=== PATIENT | female | born 1935 | race Hispanic/Latino ===

== ENCOUNTER 2018-11-05 22:57 | Emergency (ER) | payer SELFPAY ==
[2018-11-06 00:19] LABS: #Basophils 0.1 thou/uL (0.0-0.2); #Eosinphils 0.2 thou/uL (0.0-0.7); #Lymphocytes 1.4 thou/uL (1.20-3.40); #Monocytes 0.5 thou/uL (0.11-0.59); #Neutrophils 7.3 thou/uL (1.40-6.50); %Basophils 1.3 % (0.0-1.0); %Eosinophils 1.9 % (0.0-10.0); %Lymphocytes 15.2 % (21.0-51.0); %Monocytes 4.9 % (0.0-10.0); %Neutrophils 76.8 % (42.0-75.0); Hemoglobin 12.6 g/dL (12.0-16.0); Mean Corpuscular HGB CONC 34.4 g/dL (32.0-36.0); Mean Corpuscular Hemoglobin 29.8 pg (27.0-31.0); Mean Corpuscular Volume 86.9 fL (78.0-98.0); Mean Platelet Volume 9.2 fL (7.4-10.4); Platelet Count 209 thou/uL (130-400); RBC Distribution Width 12.1 % (11.5-14.5); Red Blood Cell (RBC) Count 4.22 mill/uL (4.20-5.40); White Blood Cell (WBC) Count 9.5 thou/uL (4.8-10.8)
[2018-11-06 00:32] LABS: ALT (SGPT) 12 U/L (8-55); AST (SGOT) 13 U/L (5-34); Albumin 4.4 g/dL (3.4-4.8); Alkaline Phosphatase 69 U/L (40-150); Anion Gap 21 mmol/L (10-20); BUN (Urea Nitrogen) 28 mg/dL (9.8-20.1); Bilirubin, Total 0.3 mg/dL (0.2-1.2); Calc. Creatinine Clearance 0 mL/min (70-130); Calcium 9.8 mg/dL (7.8-10.44); Carbon Dioxide 22 mmol/L (23-31); Chloride 97 mmol/L (98-107); Estimated GFR-MDRD 50; Globulin 3.4 g/dL (2.4-3.5); Glucose 116 mg/dL (83-110); Potassium 4.7 mmol/L (3.5-5.1); Protein, Total 7.8 g/dL (6.0-8.3); Sodium 135 mmol/L (136-145)
== END 2018-11-06 01:14 | disposition home or self-care (01) ==
LOC: SCSER 22:57
DX: I10 Essential (primary) hypertension (principal); E11.9 Type 2 diabetes mellitus without complications; E78.5 Hyperlipidemia, unspecified; E78.00 Pure hypercholesterolemia, unspecified; Z79.84 Long term (current) use of oral hypoglycemic drugs; Z79.899 Other long term (current) drug therapy
CPT/HCPCS: 80053; 84484; 85025; 93005; 96360; 96361

== ENCOUNTER 2018-11-13 13:12 | Inpatient (IN) | payer SELFPAY ==
[2018-11-13 13:36] LABS: #Eosinphils 0.1 thou/uL (0.0-0.7); #Lymphocytes 1.6 thou/uL (1.20-3.40); #Monocytes 0.5 thou/uL (0.11-0.59); #Neutrophils 4.9 thou/uL (1.40-6.50); %Basophils 0.4 % (0.0-1.0); %Eosinophils 0.8 % (0.0-10.0); %Lymphocytes 22.5 % (21.0-51.0); %Monocytes 7.2 % (0.0-10.0); Hemoglobin 12.8 g/dL (12.0-16.0); Mean Corpuscular Hemoglobin 29.7 pg (27.0-31.0); Mean Corpuscular Volume 84.9 fL (78.0-98.0); Mean Platelet Volume 7.7 fL (7.4-10.4); Platelet Count 239 thou/uL (130-400); RBC Distribution Width 11.6 % (11.5-14.5); Red Blood Cell (RBC) Count 4.32 mill/uL (4.20-5.40); White Blood Cell (WBC) Count 7.1 thou/uL (4.8-10.8)
[2018-11-13 13:57] LABS: ALT (SGPT) 12 U/L (8-55); AST (SGOT) 13 U/L (5-34); Albumin 4.4 g/dL (3.4-4.8); Alkaline Phosphatase 71 U/L (40-150); Anion Gap 16 mmol/L (10-20); BUN (Urea Nitrogen) 17 mg/dL (9.8-20.1); Bilirubin, Total 0.4 mg/dL (0.2-1.2); Calc. Creatinine Clearance 0 mL/min (70-130); Calcium 9.6 mg/dL (7.8-10.44); Carbon Dioxide 22 mmol/L (23-31); Chloride 87 mmol/L (98-107); Estimated GFR-MDRD 63; Glucose 107 mg/dL (83-110); Potassium 4.6 mmol/L (3.5-5.1); Protein, Total 7.4 g/dL (6.0-8.3); Sodium 120 mmol/L (136-145)
[2018-11-13 15:25] LABS: Anion Gap 15 mmol/L (10-20); BUN (Urea Nitrogen) 18 mg/dL (9.8-20.1); Calc. Creatinine Clearance 0 mL/min (70-130); Calcium 9.5 mg/dL (7.8-10.44); Carbon Dioxide 22 mmol/L (23-31); Chloride 89 mmol/L (98-107); Estimated GFR-MDRD 67; Glucose 97 mg/dL (83-110); Potassium 4.6 mmol/L (3.5-5.1); Sodium 121 mmol/L (136-145)
[2018-11-13 15:41] LABS: Bacteria/HPF 3+ HPF (None Seen); Bilirubin Negative (Negative); Blood, Urine Negative (Negative); Clarity Clear (Clear); Glucose, Urine (Dipstick) Normal (Negative); Leukocyte 250 Leu/uL (Negative); Nitrite Negative (Negative); Protein, Urine (Dipstick) Negative (Neg-Trace); RBC/HPF 0-3 HPF (0-3); Squamous Epithelial 0-3 HPF (0-3); Urobilinogen Normal mg/dL (Less than 2)
[2018-11-13] MEDS ORDERED: cefTRIAXone\\ROCEPHIN 2 GM VIAL ONE (17:30)
[2018-11-13 19:25] LABS: Magnesium 1.6 mg/dL (1.6-2.6); Phosphorus 3.3 mg/dL (2.3-4.7); Uric Acid 5.3 mg/dL (2.6-6.0)
[2018-11-13] MEDS ORDERED: Meclizine HCl 25 MG TAB PO PRN (19:30)
[2018-11-13] MEDS ORDERED: Ondansetron PF 4 MG/2 ML Vial IVP PRN (19:33)
[2018-11-13] MEDS ORDERED: Senokot S 8.6-50 MG TAB PO PRN (19:33)
[2018-11-13] MEDS ORDERED: Acetaminophen 325 MG TAB PO PRN (19:33)
[2018-11-13] MEDS ORDERED: Ondansetron ODT 4 MG TAB PO PRN (19:33)
[2018-11-13] MEDS ORDERED: Calcium Carbonate 500 MG ChewTAB PO PRN (19:33)
[2018-11-13] MEDS ORDERED: hydrALAZINE 20 MG/ML VIAL SLOW IVP PRN (19:36)
[2018-11-13] MEDS ORDERED: Sodium Chloride 0.9% 1,000 ML IV SCH (19:45)
--- NOTE | 2018-11-13 20:15 | HP ---
PRIMARY CARE PHYSICIAN: Gardenia Flores MD. CHIEF COMPLAINT: Generalized weakness with dizziness and increased urinary frequency of 1-week duration. HISTORY OF PRESENT ILLNESS: The patient is an 83-year-old female with hypertension, presented to the emergency room with above complaints. Over the last 1 week or so, the patient has generalized weakness along with lightheadedness, dizziness, and vertigo. She also has bilateral tinnitus. She also felt nauseous without any vomiting. She denies any headache, double vision, blurring of vision, facial asymmetry, weakness or numbness in any of her extremities. No history of falls or head injury reported. The patient was evaluated at [place] [facility] last week and was found to have mild dehydration. She was discharged to home. Her sodium at that time was 135 with BUN of 28, creatinine 1.06. In the emergency room today, her initial vital signs showed temperature 98.4, respirations of 18, pulse rate of 92 with a blood pressure of 205/83 with O2 saturation 97% on room air. Sodium today was 120. Urinalysis showed 11 to 20 wbc's with 3+ bacteria. PAST MEDICAL HISTORY: 1. Hypertension. 2. History of recurrent falls. 3. Diabetes mellitus type 2. 4. Hyperlipidemia. PAST SURGICAL HISTORY: Cholecystectomy. ALLERGIES: NO KNOWN DRUG ALLERGIES. CURRENT HOME MEDICATIONS: 1. Metformin 500 mg b.i.d. 2. Pravastatin 10 mg q.p.m. 3. Telmisartan 40 mg in the morning and 20 in the afternoon. 4. Aspirin 81 mg daily. SOCIAL HISTORY: The patient currently lives at home with her family. She denies current use of tobacco, alcohol, or drug use. She is full code and makes her own decision with the help of her family. FAMILY HISTORY: Positive for hypertension, hyperlipidemia, and diabetes. REVIEW OF SYSTEMS: All other review of systems was reviewed and was found negative. PHYSICAL EXAMINATION: VITAL SIGNS: As discussed above. GENERAL: An 83-year-old female, in no apparent distress. HEENT: Head, atraumatic and normocephalic. Sclerae are anicteric. Moist mucous membrane. No oral lesion. Pupils were equally reacting to light. NECK: Supple. No JVD. No carotid bruit. LUNGS: Clear to auscultation bilaterally. No wheezing, rales, or rhonchi. HEART: S1 and S2 present. Regular rate and rhythm. No rubs or gallops appreciated. ABDOMEN: Soft, nontender. Bowel sounds are present. EXTREMITIES: No edema or calf tenderness. NEUROLOGIC: Cranial nerves 2 through 12 are normal on examination. Power was 5/5 in all extremities. Sensation to touch was normal bilaterally. Ubbtqp-rq-[id number] was normal bilaterally. PSYCHIATRY: Alert, awake, and oriented x3. Normal affect. LYMPH NODES: No palpable lymph nodes in the neck. PERIPHERAL VASCULAR: Radial pulses palpable bilaterally. MUSCULOSKELETAL: No joint swelling or tenderness. LABORATORY FINDINGS: Sodium 120 with potassium 4.6, chloride 87, bicarbonate 22, BUN 17, creatinine 0.86. Serum osmolality 266. Urinalysis showed 11 to 20 wbc's with 3+ bacteria. Urine sodium 38, urine osmolality 257. WBC 7.1 with hemoglobin 12.8. IMAGING STUDIES: EKG by my review showed sinus rhythm without significant ST-T wave changes. IMPRESSION: 1. Generalized weakness, multifactorial. 2. Hypotonic hyponatremia. 3. Urinary tract infection. 4. Dehydration. 5. Chronic kidney disease, stage 2. 6. Hypertension. 7. Hyperlipidemia. 8. Diabetes mellitus type 2. PLAN: The patient will be monitored on the medical floor. We will start her on ceftriaxone for UTI. We will check postvoid residual. Start meclizine. Consult Physical Therapy. IV hydration. Recheck labs in a.m. Resume telmisartan as well as aspirin, metformin and pravastatin. Check orthostatic vitals in a.m. Add meclizine as needed. Recheck labs in a.m. Check TSH and cortisol as well. Please note, the patient is Hungarian-speaking only. History obtained with the help of the enrobing machine corder. Job ID: [id number]
[2018-11-13] MEDS: Pravastatin Sodium 20 MG TAB PO SCH (20:48)
[2018-11-13] MEDS ORDERED: Famotidine 20 MG TAB PO SCH (21:00)
[2018-11-14 06:26] LABS: Anion Gap 12 mmol/L (10-20); BUN (Urea Nitrogen) 17 mg/dL (9.8-20.1); Calc. Creatinine Clearance 38 mL/min (70-130); Calcium 9.2 mg/dL (7.8-10.44); Carbon Dioxide 23 mmol/L (23-31); Chloride 98 mmol/L (98-107); Estimated GFR-MDRD 66; Glucose 92 mg/dL (83-110); Magnesium 1.5 mg/dL (1.6-2.6); Phosphorus 3.5 mg/dL (2.3-4.7); Potassium 4.1 mmol/L (3.5-5.1); Sodium 129 mmol/L (136-145)
[2018-11-14 07:05] LABS: Folate (Folic Acid) 16.9 ng/mL (7.0-31.4)
[2018-11-14] MEDS: Aspirin 81 mg Enteric Coated Tablet PO SCH (08:00)
[2018-11-14] MEDS: Enoxaparin Sodium 30 MG/0.3 ML SYRINGE SC SCH (08:00)
[2018-11-14] MEDS: metFORMIN 500 MG TAB PO SCH ×2 (08:00→16:57)
[2018-11-14] MEDS: Losartan 25 MG TAB PO SCH ×2 (08:00→14:03)
[2018-11-14] MEDS ORDERED: Sodium Chloride 0.45% 1,000 ML IV SCH (08:45)
[2018-11-14] MEDS ORDERED: Magnesium 2 GM/50 ML 2 GM in Premix Bag 1 BAG IVPB SCH (08:45)
--- NOTE | 2018-11-14 12:07 | PDOC.HOSPP ---
- Subjective Encounter Date: 11/14/18 Encounter Time: 11:30 Subjective: Patient seen and examined for gen weakness/dizziness. No CP or SOB. Dizziness improving. Overall feeling better. No new complaints. No overnight events - Objective Vital Signs & Weight: Vital Signs (12 hours) Temp Pulse Pulse Pulse Resp BP BP 11/14/18 11:10 81 89 177/78 H 175/79 H 11/14/18 11:00 97.5 F L 82 18 11/14/18 08:00 11/14/18 07:59 97.7 F 68 18 11/14/18 04:17 98.0 F 70 16 11/14/18 00:14 97.8 F 72 16 BP BP BP Pulse Ox 11/14/18 11:10 172/76 H 188/72 H 11/14/18 11:00 184/77 H 99 11/14/18 08:00 96 11/14/18 07:59 151/73 H 96 11/14/18 04:17 144/74 H 93 L 11/14/18 00:14 146/74 H 95 Weight Weight 104 lb 1 oz Result Diagrams: 11/13/18 13:26 11/14/18 05:50 Additional Labs: Accuchecks 11/14/18 11/13/18 04:19 19:52 POC Glucose 83 87 Laboratory Tests 11/13/18 11/13/18 11/13/18 13:26 14:57 15:29 Sodium 120 L 121 L Serum Osmolality Magnesium Vitamin B12 Folate TSH 3rd Generation Cortisol Urine Osmolality 257 L Urine Sodium 11/13/18 11/13/18 11/13/18 15:29 18:36 18:53 Sodium Serum Osmolality 266 L Magnesium Vitamin B12 Folate TSH 3rd Generation 0.9662 Cortisol Urine Osmolality Urine Sodium 38 11/14/18 11/14/18 11/14/18 05:50 05:50 05:50 Sodium Serum Osmolality Magnesium 1.5 L Vitamin B12 445 Folate 16.90 TSH 3rd Generation Cortisol 7.90 Urine Osmolality Urine Sodium Hospitalist ROS - Review of Systems Respiratory: denies: cough, dry, shortness of breath, hemoptysis, SOB with excertion, pleuritic pain, sputum, wheezing, other Cardiovascular: denies: chest pain, palpitations, orthopnea, paroxysmal noc. dyspnea, edema, light headedness, other Gastrointestinal: denies: nausea, vomitting, abdominal pain, diarrhea, constipation, melena, hematochezia, other - Medication Medications: Active Medications Generic Name Dose Route Start Last Admin Trade Name Petra PRN Reason Stop Dose Admin Aspirin 81 mg 11/14/18 09:00 11/14/18 08:00 Ecotrin PO 81 mg DAILY JOHNNY Administration Enoxaparin Sodium 30 mg 11/14/18 09:00 11/14/18 08:00 Lovenox SC 30 mg 0900 JOHNNY Administration Losartan Potassium 50 mg 11/14/18 09:00 11/14/18 08:00 Cozaar PO 50 mg DAILY JOHNNY Administration Metformin HCl 500 mg 11/14/18 08:00 11/14/18 08:00 Glucophage PO 500 mg BID-WM JOHNNY Administration Pravastatin Sodium 10 mg 11/13/18 21:00 11/13/18 20:48 Pravachol PO 10 mg QPM JOHNNY Administration - Exam General Appearance: NAD Neck: supple, symmetric, no JVD, no carotid bruit Heart: RRR, no murmur, no gallops, no rubs Respiratory: CTAB, no wheezes, no rales, no ronchi Gastrointestinal: soft, non-tender, non-distended, normal bowel sounds, no guarding, no rigidity Extremities: no cyanosis, no clubbing, no edema Neurological: no new deficit Psychiatric: normal affect, A&O x 3 Hosp A/P - Plan PT/OT, DVT proph w/lovenox, DVT proph w/SCDs IMPRESSION: 1. Generalized weakness, multifactorial. 2. Hypotonic hyponatremia - improving 3. Urinary tract infection. 4. Dehydration. 5. Chronic kidney disease, stage 2. 6. Hypertension - uncontrolled. 7. Hyperlipidemia. 8. Diabetes mellitus type 2. PLAN: Cont IV ceftriaxone for UTI. Orthostatic negative postvoid residual ok Cont meclizine PRN Cont telmisartan, aspirin, metformin and pravastatin. Add low dose Coreg due to uncontrolled BP
[2018-11-14 14:11] LABS: Sodium 128 mmol/L (136-145)
[2018-11-14] MEDS: cefTRIAXone\\ROCEPHIN 1 GM in Sodium Chloride 0.9% 100 ML IVPB SCH (16:57)
[2018-11-14] MEDS: Carvedilol 3.125 MG TAB PO SCH (16:57)
[2018-11-14] MEDS: Pravastatin Sodium 20 MG TAB PO SCH (20:38)
[2018-11-14] MEDS: Famotidine 20 MG TAB PO SCH (20:39)
[2018-11-15 07:34] LABS: Anion Gap 10 mmol/L (10-20); BUN (Urea Nitrogen) 14 mg/dL (9.8-20.1); Calc. Creatinine Clearance 39 mL/min (70-130); Calcium 9.2 mg/dL (7.8-10.44); Carbon Dioxide 27 mmol/L (23-31); Chloride 96 mmol/L (98-107); Estimated GFR-MDRD 67; Glucose 109 mg/dL (83-110); Magnesium 1.9 mg/dL (1.6-2.6); Potassium 4.3 mmol/L (3.5-5.1); Sodium 129 mmol/L (136-145)
[2018-11-15] MEDS: Carvedilol 3.125 MG TAB PO SCH ×2 (09:06→17:04)
[2018-11-15] MEDS: Enoxaparin Sodium 30 MG/0.3 ML SYRINGE SC SCH (09:06)
[2018-11-15] MEDS: Losartan 25 MG TAB PO SCH ×2 (09:06→11:48)
[2018-11-15] MEDS: metFORMIN 500 MG TAB PO SCH ×2 (09:06→17:04)
[2018-11-15] MEDS: Aspirin 81 mg Enteric Coated Tablet PO SCH (09:06)
[2018-11-15] MEDS: Sodium Chloride 0.9% 1,000 ML IV SCH (09:16)
--- NOTE | 2018-11-15 11:55 | CT ---
CT BRAIN WITHOUT CONTRAST: Date: 11/15/18 HISTORY: Altered mental status. FINDINGS: No evidence of acute infarct, hemorrhage, midline shift, or abnormal extra-axial fluid collections ar e seen. The ventricular size is appropriate and the basilar cisterns are patent. The bony calvarium i s intact. The visualized paranasal sinuses and mastoid air cells are well aerated. IMPRESSION: No CT evidence of acute intracranial process. POS: [facility]
[2018-11-15] MEDS ORDERED: hydrALAZINE 20 MG/ML VIAL SLOW IVP PRN (13:43)
[2018-11-15] MEDS ORDERED: Sodium Chloride 0.9% 250 ML IV SCH (13:45)
--- NOTE | 2018-11-15 14:43 | PDOC.HOSPP ---
- Subjective Encounter Date: 11/15/18 Encounter Time: 09:00 Subjective: Patient seen and examined for Encephalopathy. Intermittent confusion per family. No new complaints. No overnight events - Objective Vital Signs & Weight: Vital Signs (12 hours) Temp Pulse Resp BP Pulse Ox 11/15/18 13:01 70 11/15/18 12:35 97.6 F 70 20 191/74 H 98 11/15/18 07:44 97.6 F 70 18 188/75 H 95 11/15/18 03:39 96 Weight Weight 104 lb 1 oz I&O: 11/14/18 11/15/18 11/16/18 06:59 06:59 06:59 Intake Total 1110 Balance 1110 Result Diagrams: 11/13/18 13:26 11/15/18 07:01 Additional Labs: Accuchecks 11/15/18 11/15/18 11/14/18 11:51 05:07 19:53 POC Glucose 118 H 118 H 130 H 11/14/18 16:10 POC Glucose 158 H Microbiology 11/13/18 15:29 Urine clean catch Urine Culture - Final Escherichia coli Radiology Reviewed by me: Yes (CT brain - neg) Hospitalist ROS - Review of Systems Respiratory: denies: cough, dry, shortness of breath, hemoptysis, SOB with excertion, pleuritic pain, sputum, wheezing, other Cardiovascular: denies: chest pain, palpitations, orthopnea, paroxysmal noc. dyspnea, edema, light headedness, other Gastrointestinal: denies: nausea, vomitting, abdominal pain, diarrhea, constipation, melena, hematochezia, other - Medication Medications: Active Medications Generic Name Dose Route Start Last Admin Trade Name Sebasq PRN Reason Stop Dose Admin Aspirin 81 mg 11/14/18 09:00 11/15/18 09:06 Ecotrin PO 81 mg DAILY JOHNNY Administration Carvedilol 3.125 mg 11/14/18 17:00 11/15/18 09:06 Coreg PO 3.125 mg BID-WM JOHNNY Administration Enoxaparin Sodium 30 mg 11/14/18 09:00 11/15/18 09:06 Lovenox SC 30 mg 0900 JOHNNY Administration Famotidine 20 mg 11/14/18 21:00 11/14/18 20:39 Pepcid PO 20 mg QPM JOHNNY Administration Ceftriaxone Sodium 1 gm/ 100 mls @ 200 mls/hr 11/14/18 17:00 11/14/18 16:57 Sodium Chloride IVPB 100 mls 1700 JOHNNY Administration Sodium Chloride 1,000 mls @ 50 mls/hr 11/15/18 07:45 11/15/18 09:16 Normal Saline 0.9% IV 1,000 mls .Q20H JOHNNY Administration Losartan Potassium 50 mg 11/14/18 09:00 11/15/18 09:06 Cozaar PO 50 mg DAILY JOHNNY Administration Losartan Potassium 25 mg 11/14/18 13:00 11/15/18 11:48 Cozaar PO 25 mg 1300 JOHNNY Administration Metformin HCl 500 mg 11/14/18 08:00 11/15/18 09:06 Glucophage PO 500 mg BID-WM JOHNNY Administration Pravastatin Sodium 10 mg 11/13/18 21:00 11/14/18 20:38 Pravachol PO 10 mg QPM JOHNNY Administration - Exam General Appearance: NAD Neck: supple, no JVD Heart: RRR, no gallops Respiratory: CTAB, no wheezes, no rales, no ronchi Gastrointestinal: soft, non-tender, non-distended, normal bowel sounds Extremities: no edema Neurological: no new deficit Psychiatric: normal affect, A&O x 3 Hosp A/P - Plan IMPRESSION: 1. Generalized weakness, multifactorial. 2. Hypotonic hyponatremia- Na 129 today 3. E coli UTI. 4. Dehydration. 5. Chronic kidney disease, stage 2. 6. Hypertension - uncontrolled. 7. Hyperlipidemia. 8. Diabetes mellitus type 2. PLAN: Cont IV ceftriaxone CT brain - negative Restart IVF @ 50 ml/hr Cont meclizine PRN Cont other meds - Coreg, telmisartan, aspirin, metformin and pravastatin. BMP in AM
[2018-11-15] MEDS: cefTRIAXone\\ROCEPHIN 1 GM in Sodium Chloride 0.9% 100 ML IVPB SCH (17:04)
[2018-11-15] MEDS: Pravastatin Sodium 20 MG TAB PO SCH (20:39)
[2018-11-15] MEDS: Famotidine 20 MG TAB PO SCH (20:39)
[2018-11-16] MEDS: Sodium Chloride 0.9% 1,000 ML IV SCH (02:42)
[2018-11-16 07:51] LABS: Anion Gap 12 mmol/L (10-20); BUN (Urea Nitrogen) 12 mg/dL (9.8-20.1); Calc. Creatinine Clearance 38 mL/min (70-130); Calcium 8.5 mg/dL (7.8-10.44); Carbon Dioxide 23 mmol/L (23-31); Chloride 99 mmol/L (98-107); Estimated GFR-MDRD 65; Glucose 94 mg/dL (83-110); Potassium 4.1 mmol/L (3.5-5.1); Sodium 130 mmol/L (136-145)
[2018-11-16] MEDS: Aspirin 81 mg Enteric Coated Tablet PO SCH (08:04)
[2018-11-16] MEDS: metFORMIN 500 MG TAB PO SCH ×2 (08:05→16:43)
[2018-11-16] MEDS: Losartan 25 MG TAB PO SCH ×2 (08:05→13:18)
[2018-11-16] MEDS: Enoxaparin Sodium 30 MG/0.3 ML SYRINGE SC SCH (08:05)
[2018-11-16] MEDS: Carvedilol 3.125 MG TAB PO SCH ×2 (08:05→16:43)
[2018-11-16] MEDS: cefTRIAXone\\ROCEPHIN 1 GM in Sodium Chloride 0.9% 100 ML IVPB SCH (16:44)
[2018-11-16] MEDS: Pravastatin Sodium 20 MG TAB PO SCH (21:26)
[2018-11-16] MEDS: Famotidine 20 MG TAB PO SCH (21:27)
--- NOTE | 2018-11-16 23:50 | PDOC.HOSPP ---
- Subjective Encounter Date: 11/16/18 Encounter Time: 09:45 Subjective: Patient seen and examined for Gen weakness. Vertigo +. No new complaints. No overnight events - Objective Vital Signs & Weight: Vital Signs (12 hours) Temp Pulse Resp BP BP Pulse Ox 11/16/18 19:53 97.9 F 76 20 155/73 H 97 11/16/18 16:00 97.2 F L 78 16 146/75 H 97 11/16/18 14:00 98.2 F 11/16/18 13:35 98.2 F 79 18 158/71 H 97 11/16/18 13:20 138/70 Weight Weight 104 lb 1 oz I&O: 11/15/18 11/16/18 11/17/18 06:59 06:59 06:59 Intake Total 1110 2660 2260 Balance 1110 2660 2260 Result Diagrams: 11/13/18 13:26 11/16/18 07:15 Additional Labs: Accuchecks 11/16/18 11/16/18 11/16/18 19:59 16:39 11:45 POC Glucose 142 H 119 H 161 H 11/16/18 05:21 POC Glucose 102 Hospitalist ROS - Review of Systems Respiratory: denies: cough, dry, shortness of breath, hemoptysis, SOB with excertion, pleuritic pain, sputum, wheezing, other Cardiovascular: denies: chest pain, palpitations, orthopnea, paroxysmal noc. dyspnea, edema, light headedness, other Gastrointestinal: denies: nausea, vomitting, abdominal pain, diarrhea, constipation, melena, hematochezia, other - Medication Medications: Active Medications Generic Name Dose Route Start Last Admin Trade Name Freq PRN Reason Stop Dose Admin Aspirin 81 mg 11/14/18 09:00 11/16/18 08:04 Ecotrin PO 81 mg DAILY JOHNNY Administration Carvedilol 3.125 mg 11/14/18 17:00 11/16/18 16:43 Coreg PO 3.125 mg BID-WM JOHNNY Administration Enoxaparin Sodium 30 mg 11/14/18 09:00 11/16/18 08:05 Lovenox SC 30 mg 0900 JOHNNY Administration Famotidine 20 mg 11/14/18 21:00 11/16/18 21:27 Pepcid PO 20 mg QPM JOHNNY Administration Ceftriaxone Sodium 1 gm/ 100 mls @ 200 mls/hr 11/14/18 17:00 11/16/18 16:44 Sodium Chloride IVPB 100 mls 1700 JOHNNY Administration Sodium Chloride 1,000 mls @ 50 mls/hr 11/15/18 07:45 11/16/18 02:42 Normal Saline 0.9% IV 1,000 mls .Q20H JOHNNY Administration Losartan Potassium 50 mg 11/14/18 09:00 11/16/18 08:05 Cozaar PO 50 mg DAILY JOHNNY Administration Losartan Potassium 25 mg 11/14/18 13:00 11/16/18 13:18 Cozaar PO 25 mg 1300 JOHNNY Administration Metformin HCl 500 mg 11/14/18 08:00 11/16/18 16:43 Glucophage PO 500 mg BID-WM JOHNNY Administration Pravastatin Sodium 10 mg 11/13/18 21:00 11/16/18 21:26 Pravachol PO 10 mg QPM JOHNNY Administration - Exam General Appearance: NAD Neck: supple, no JVD Heart: RRR, no gallops Respiratory: CTAB, no wheezes, no ronchi Gastrointestinal: soft, non-tender, non-distended, normal bowel sounds Extremities: no edema Neurological: CN's grossly intact, normal sensation to touch, no new deficit Psychiatric: normal affect, A&O x 3 Hosp A/P - Plan IMPRESSION: 1. Generalized weakness, multifactorial. 2. Hypotonic hyponatremia- Na 130 today 3. E coli UTI - on IV Atbx 4. Dehydration. 5. Chronic kidney disease, stage 2. 6. Hypertension - uncontrolled. 7. Hyperlipidemia. 8. Diabetes mellitus type 2. PLAN: Cont IV ceftriaxone Cont IVF @ 50 ml/hr Cont meclizine PRN Cont other meds - Coreg, telmisartan, aspirin, metformin and pravastatin. BMP in AM DC in 24 hr if stable ENT f/u as outpt
[2018-11-17] MEDS: Sodium Chloride 0.9% 1,000 ML IV SCH (00:53)
--- NOTE | 2018-11-17 01:03 | EKG ---
Test Reason : Blood Pressure : / mmHG Vent. Rate : 084 BPM Atrial Rate : 084 BPM P-R Int : 128 ms QRS Dur : 068 ms QT Int : 358 ms P-R-T Axes : 058 021 102 degrees QTc Int : 423 ms Normal sinus rhythm T wave abnormality, consider lateral ischemia Abnormal ECG Confirmed by YAMEL VU ([id number]), business editor JAMES MARTIN ([id number]) on 11/17/2018 1:02:15 AM Referred By: Confirmed By:YAMEL VU
[2018-11-17 06:18] VITALS: BMI 20.6
[2018-11-17] MEDS: metFORMIN 500 MG TAB PO SCH (08:56)
[2018-11-17] MEDS: Enoxaparin Sodium 30 MG/0.3 ML SYRINGE SC SCH (08:56)
[2018-11-17] MEDS: Aspirin 81 mg Enteric Coated Tablet PO SCH (08:57)
[2018-11-17] MEDS: Carvedilol 3.125 MG TAB PO SCH ×2 (08:58→17:13)
[2018-11-17] MEDS: Losartan 25 MG TAB PO SCH ×2 (08:58→12:41)
[2018-11-17 11:14] LABS: Anion Gap 13 mmol/L (10-20); BUN (Urea Nitrogen) 15 mg/dL (9.8-20.1); Calc. Creatinine Clearance 38 mL/min (70-130); Calcium 9.2 mg/dL (7.8-10.44); Carbon Dioxide 25 mmol/L (23-31); Chloride 99 mmol/L (98-107); Estimated GFR-MDRD 61; Glucose 185 mg/dL (83-110); Potassium 4.3 mmol/L (3.5-5.1); Sodium 133 mmol/L (136-145)
--- NOTE | 2018-11-17 16:48 | DIS ---
DATE OF ADMISSION: 11/13/2018 DATE OF DISCHARGE: 11/17/2018 DISCHARGE DISPOSITION: Home. FOLLOWUP: Follow up with primary care physician at [id number] in 1 week. Follow up with ENT as outpatient is recommended due to peripheral vertigo. ALLERGIES: NO KNOWN DRUG ALLERGIES. DISCHARGE MEDICATIONS: 1. Carvedilol 3.125 mg b.i.d. 2. Omnicef 300 mg b.i.d. for next 3 days. All other home medications were left unchanged. The patient was seen on the day of discharge. Denies any new complaints. No chest pain, shortness of breath, or palpitations reported. BRIEF HOSPITAL COURSE: The patient is an 83-year-old female with diabetes mellitus type 2, hypertension, and hyperlipidemia, presented to the hospital on 13 November 2018 with generalized weakness along with dizziness and increased urinary frequency of 1-week duration. Her workup was consistent with hyponatremia with sodium of 120, serum osmolality of 266, urine osmolality of 257 with urine sodium of 38. She also was found to have E. coli UTI. She showed good improvement with IV hydration. Due to uncontrolled blood pressure, carvedilol was added. Her mentation is back to her baseline. CT scan of the brain was negative for acute intracranial pathology. She will benefit from outpatient ENT evaluation for peripheral vertigo. FINAL DIAGNOSES: 1. Generalized weakness, multifactorial. 2. Hypotonic hyponatremia secondary to poor oral intake, improved. Her sodium on the day of discharge is 133 from 120 on admission. 3. Escherichia coli urinary tract infection. 4. Toxic Metabolic Encephalopathy. 5. Chronic kidney disease, stage 2. 6. Hypertension. 7. Hyperlipidemia. 8. Diabetes mellitus, type 2. 9. Hypomagnesemia. 10. Dehydration. SIGNIFICANT LABORATORY DATA: Cortisol was 7.9, vitamin B12 was 445, folic acid 16.9. Troponin was negative. Magnesium was 1.5. Total time coordinating the discharge of this patient was 32 minutes. Blood pressure on the day of discharge is 148/80 with pulse rate of 74. Fall precaution was emphasized. Job ID: [id number] MTDD
[2018-11-17 17:21] VITALS: TEMP 98.7
[2018-11-17 19:18] VITALS: BP 170/89
--- NOTE | 2018-11-20 05:33 | PQF ---
AYANA León MALIK MD [id number] CLINICAL DOCUMENTATION CLARIFICATION FORM: POST DISCHARGE Addendum to original discharge summary date: ____ Late entry note date: __ DATE: 11-20-2018 ATTN:Josiah Tesfaye Please exercise your independent, professional judgment in responding to the clarification form. Clinical indicators are provided on the bottom of this form for your review Based on your clinical knowledge kindly identify what the patient actually has. Please check appropriate box(s): [ ] Encephalopathy: Type: [ x ] Acute [ ] Subacute [ ] Chronic Etiology: [ ] Hypertensive [x ] Metabolic [ x ] Toxic [ ] Other diagnosis please specify: [ ] Unable to determine In addition, please specify: Present on Admission (POA): [ x ] Yes [ ] No [ ] Unable to determine For continuity of documentation, please document condition throughout progress notes and discharge summary. Thank You. CLINICAL INDICATORS: HP 11/[address] Knutson Chief complaint: generalized weakness and dizziness and increased urinary frequency HP 11/[address] Knutson We will start her ceftriaxone for UTI PN 11/[address] Knutson Patient seen and examined for encephalopathy, intermittent confusion per family PN 11/[address] Knutson E coli UTI PN 11/[address] Knutson Hypotonic hyponatremia CT scan 11/15- Impression: NO CT evidence of acute intracranial process DS 11/[address] Knutson Her mentation is back to her baseline ED Notes 11/13 Patient presents for evaluation of dizziness CT scan 11/15 Altered mental status RISK FACTORS: HP 11/13 Dr. Knutson- UTI HP 11/13 Dr. Knutson- Dehydration PN 11/14 Dr. Knutson-Hyponatremia ED Notes 11/13 83 years old female ED Notes 11/13 HTN DS 11/[address] Knutson - Hypomagnesemia TREATMENTS: Imaging- Brain CT scan MAY 18- Ceftriaxone IV MAY 18- Sodium Chloride IV 11/13 Dr. Knutson- IVF (This form is maintained as a part of the permanent medical record) 2014 [employer]. All Rights Reserved [email or web address] [email or web address] [not provided] MTDD
== END 2018-11-17 17:54 | disposition home or self-care (01) | DRG 640 ==
LOC: ERS 13:12 → T4-B 18:00
PROVIDERS: ADMIT Internal Medicine; ATTEND Internal Medicine
DX: E87.1 Hypo-osmolality and hyponatremia (principal); G92 Toxic encephalopathy; N39.0 Urinary tract infection, site not specified; E86.0 Dehydration; H81.399 Other peripheral vertigo, unspecified ear; E11.22 Type 2 diabetes mellitus with diabetic chronic kidney disease; E78.5 Hyperlipidemia, unspecified; E78.00 Pure hypercholesterolemia, unspecified; I12.9 Hypertensive chronic kidney disease with stage 1 through stage 4 chronic kidney disease, or unspecified chronic kidney disease; H93.13 Tinnitus, bilateral; R29.6 Repeated falls; N18.2 Chronic kidney disease, stage 2 (mild); B96.20 Unspecified Escherichia coli [E. coli] as the cause of diseases classified elsewhere; E83.42 Hypomagnesemia; Z79.84 Long term (current) use of oral hypoglycemic drugs; Z90.49 Acquired absence of other specified parts of digestive tract; Z79.82 Long term (current) use of aspirin; Z79.899 Other long term (current) drug therapy; Z90.710 Acquired absence of both cervix and uterus
CPT/HCPCS: 36415; 36416; 70450; 80048; 80053; 81003; 81015; 82533; 82607; 82746; 83735; 83930; 83935; 84100; 84300; 84443; 84484; 84550; 85025; 87077; 87086; 87186; 93005; 96365; J0360; J0696; J1650; J3475; J3490

== ENCOUNTER 2019-05-20 10:50 | Inpatient (IN) | payer MEDICAID, OTHER, SELFPAY ==
[2019-05-20 11:48] LABS: #Monocytes 0.4 thou/uL (0.11-0.59); #Neutrophils 9.1 thou/uL (1.40-6.50); %Basophils 0.1 % (0.0-1.0); %Eosinophils 0.2 % (0.0-10.0); %Lymphocytes 9.9 % (21.0-51.0); %Monocytes 3.9 % (0.0-10.0); %Neutrophils 85.9 % (42.0-75.0); Hemoglobin 12.7 g/dL (12.0-16.0); Mean Corpuscular HGB CONC 33.4 g/dL (32.0-36.0); Mean Corpuscular Hemoglobin 28.9 pg (27.0-31.0); Mean Corpuscular Volume 86.6 fL (78.0-98.0); Mean Platelet Volume 9.2 fL (7.4-10.4); Platelet Count 145 thou/uL (130-400); RBC Distribution Width 12.1 % (11.5-14.5); White Blood Cell (WBC) Count 10.6 thou/uL (4.8-10.8)
--- NOTE | 2019-05-20 11:57 | CT ---
Exam: Head CT without contrast HISTORY: Headache. Dizziness. COMPARISON: 11/15/2018 FINDINGS: Hemorrhage: There is intraparenchymal hemorrhage centered in the left frontal lobe. Associated vasoge zena edema. There are sulcal effacement and mild mass effect upon the frontal horn of the left lateral ventricle. There is minimal xfae-[id number] subfalcine herniation of approximately 2 to 3 mm. B asilar cisterns are patent. Brain parenchyma: With regards to the remainder the cerebrum, cortical nance-white matter differentiat ion is preserved. Ventricular system: No hydrocephalus Calvarium: Intact. Sinuses and mastoid air cells: Adequate aeration. IMPRESSION: Intraparenchymal hemorrhage centered in the left frontal lobe. Results of study discussed with Dr. Janes reyes 05/20/2019 11:53 AM Code CR
[2019-05-20] MEDS ORDERED: niCARdipine 25 MG in Sodium Chloride 0.9% 250 ML 240 ML IVPB SCH (12:15)
[2019-05-20 12:43] LABS: ALT (SGPT) 13 U/L (8-55); AST (SGOT) 15 U/L (5-34); Albumin 4.1 g/dL (3.4-4.8); Alkaline Phosphatase 116 U/L (40-110); Anion Gap 15 mmol/L (10-20); BUN (Urea Nitrogen) 25 mg/dL (9.8-20.1); Bilirubin, Total 0.6 mg/dL (0.2-1.2); Calc. Creatinine Clearance 0 mL/min (70-130); Calcium 9.3 mg/dL (7.8-10.44); Carbon Dioxide 24 mmol/L (23-31); Chloride 98 mmol/L (98-107); Estimated GFR-MDRD 39; Globulin 3.6 g/dL (2.4-3.5); Glucose 310 mg/dL (83-110); Potassium 4.4 mmol/L (3.5-5.1); Protein, Total 7.7 g/dL (6.0-8.3); Sodium 133 mmol/L (136-145)
[2019-05-20 13:12] LABS: INR-International Normal Ratio 0.9; PTT 24.8 SEC (22.9-36.1); Prothrombin Time 12.5 SEC (12.0-14.7)
[2019-05-20] MEDS ORDERED: Ondansetron PF 4 MG/2 ML Vial IVP PRN (13:28)
[2019-05-20] MEDS ORDERED: Dextrose 50% Abboject 50 ML SYRINGE SLOW IVP PRN (13:49)
[2019-05-20] MEDS ORDERED: Dextrose 5% in Water 1,000 ML IV PRN (13:49)
[2019-05-20] MEDS ORDERED: Magnevist 469MG/ML 20 ML VIAL ONE (14:39)
--- NOTE | 2019-05-20 16:47 | MRI ---
Exam: MRI brain exam of the telida of Glass MR venogram of the dural venous system HISTORY: Acute left frontal intracranial hemorrhage. COMPARISON: None TECHNIQUE: Axial 3-D insb-[id number] imaging and coronal 2-D lihm-tz-[id number] imaging was performed to a ssess for the intracranial arteries as well as the venous system FINDINGS: Axial 3-D gkhm-[id number] images: Markedly limited due to motion degradation. Grossly no significant d ecreased flow related signal with regards to the telida of [place], proximal A2 and M2 segments. There does appear to be decreased flow related signal in bilateral cavernous segments of the internal carotid arteries which may be artifactual. Grossly no significant stenosis involving the posterior circulation. No evidence of a vascular lesion in the region of parenchymal hemorrhage (left frontal lobe). The deg ree of mass effect and edema limits evaluation. MR venogram: There is appropriate signal intensity of the sagittal sinus, internal cerebral veins, st raight sinus, vein of Ken, bilateral transverse sinuses, sigmoid sinuses. 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 IMPRESSION: 1. Markedly limited MR angiography of the telida of Glass. Grossly no abnormality. 2. Grossly unremarkable MR venogram. 3. No obvious vascular malformation in the region of left frontal intra-axial hemorrhage. Follow-up i coty after acute hematoma and edema resolves.
[2019-05-20] MEDS: niCARdipine 25 MG in Sodium Chloride 0.9% 250 ML 240 ML IVPB PRN ×3 (16:56→23:01)
[2019-05-20] MEDS: Lactated Ringer's 1,000 ML IV SCH (16:58)
--- NOTE | 2019-05-20 17:00 | MRI ---
MRI BRAIN WITH AND WITHOUT CONTRAST: DATE: 05/20/19 HISTORY: 84-year-old female with headache, dizziness, and acute intracerebral hemorrhage. COMPARISON: No prior brain MRIs. TECHNIQUE: Multiple sequences obtained in axial, sagittal, and coronal planes; pre and post IV injection of gado linium-based contrast agent: 6 mL Multihance (half dose). FINDINGS: In the anterolateral aspect of the left frontal lobe, there is an approximately 4.5 x 4.5 x 3 cm intr a-axial hematoma consisting of oxyhemoglobin and deoxyhemoglobin (no methemoglobin), surrounded by a moderate sized region of vasogenic edema that extends superiorly. It is lateral to the frontal horn o f the lateral ventricle, which it compresses, distorts, and displaces medially. The septum pellucidum is displaced to the right of midline by a few millimeters. No obstructive hydrocephalus. No subdural or epidural hematoma. Tiny amounts of intraventricular spillage of blood noted in the occipital horn s of the lateral ventricles bilaterally (on gradient echo sequence). Outside of the hematoma, there i s no restricted diffusion. Postcontrast images are significantly degraded by patient motion. There is no obvious abnormal enhancement involving the region of the hematoma or elsewhere. Chronic ischemic white matter changes are mild. No evidence of remote hemorrhage elsewhere. IMPRESSION: 1. Large, acute left frontal intra-axial hematoma with surrounding vasogenic edema and mass effe ct. 2. The etiology of the hematoma is not apparent. There is no abnormal enhancement. 3. Neurosurgical consultation and follow-up are recommended. JACKLYN Floyd POS: JOVANNY
--- NOTE | 2019-05-20 18:09 | CON ---
DATE OF CONSULTATION: 05/20/2019 SERVICE: Pulmonary Medicine. REASON FOR CONSULTATION: ICU patient. HISTORY OF PRESENT ILLNESS: The patient is an 84-year-old female with past medical history significant for hypertension. She was in her usual state of health when she had an onset of headache. She had mental status changes and was brought to the Emergency Department. A CT of the head showed that she had an intracranial hemorrhage. She was immediately started on nicardipine, and her blood pressure was reduced to systolic of less than 140. She denies any current chest pain, fevers , chills, nausea, vomiting, shortness of breath, or recent illness. She does have a headache, but it seems to be improving. She is surrounded by family members. She did not have any infectious prodrome prior to this event occurring and last night when she went to sleep, she was in her usual state of health. PAST MEDICAL HISTORY: 1. Hypertension. 2. Dyslipidemia. 3. Type 2 diabetes mellitus. 4. Recent history of falls. PAST SURGICAL HISTORY: Cholecystectomy. FAMILY HISTORY: Noncontributory. SOCIAL HISTORY: Negative for alcohol, tobacco, or illicit drug use. She lives at home with her family members. She has no exposure to chemicals, dust, asbestos , or tuberculosis. ALLERGIES: NO KNOWN DRUG ALLERGIES. MEDICATIONS: A list of her home medications, as well as inpatient medications were reviewed. No specific updates were made at this time. REVIEW OF SYSTEMS: General, head, ears, eyes, nose, throat, cardiovascular, respiratory, GI, , musculoskeletal, neurologic, and skin are negative as except mentioned in the HPI. PHYSICAL EXAMINATION: VITAL SIGNS: Afebrile, pulse 77, blood pressure 142/68, respirations 14, and saturation 98%, currently on room air. GENERAL: The patient is awake and alert. She is in no apparent distress. LUNGS: Very good air entry without any prolonged expiratory phase, wheezing, rhonchi, or crackles present. HEART: Normal rate. Regular. ABDOMEN: Soft, nontender, and nondistended. Bowel sounds are positive. MUSCULOSKELETAL: No cyanosis or clubbing. There is no pitting in the bilateral lower extremities. NEUROLOGIC: Cranial nerves 2 through 12 are intact. Sensation, reflexes, and strength are symmetric bilaterally. Visual carranza were not tested. LABORATORY DATA: WBC 10.6, hemoglobin 12.7, and platelets 145,000. INR 0.9. Creatinine 1.29, which is above baseline. Liver function studies are unremarkable. Troponin is negative x1, serum osmolality 297. Influenza A and B are unremarkable. IMAGING: CT of the brain demonstrates intraparenchymal hemorrhage in the left frontal lobe. There is minimal midline shift present. This lesion measures roughly 3 cm x 4.5 cm. ASSESSMENT: 1. Intraparenchymal hemorrhage of the left frontal lobe. 2. Hypertension. 3. Type 2 diabetes mellitus. DISCUSSION AND PLAN: The patient has an appearance of a touch of dehydration. I will initiate lactated Ringer's at 75 mL/h. We will watch her neurologic status closely. She is on a Cardene drip, and we will target systolic blood pressure of less than 140. A six-pack of platelets will be provided as the patient uses aspirin at home. Pulmonary/Critical Care will continue to follow closely. 70 minutes have been devoted to this patient in various activities. I personally reviewed all imaging studies and laboratory data noted within this document. For fifty percent of this time, I was interacting with the patient at the bedside or coordinating care with the care team. For the remainder of the time I was immediately available to the patient in the hospital unit. Job ID: [id number] MTDD
[2019-05-20] MEDS: Carvedilol 6.25 MG TAB PO SCH (18:27)
--- NOTE | 2019-05-20 19:55 | CON ---
DATE OF CONSULTATION: 05/20/2019 CHIEF COMPLAINT: Medical management for the patient with intracranial bleeding. HISTORY OF PRESENT ILLNESS: Ms. Aguillon is an 84-year-old female with past medical history of hypertension, hyperlipidemia, chronic kidney disease, and diabetes mellitus type 2, who presented to the emergency room with headache and dizziness that started this morning. In the emergency room, the patient was hypertensive with a blood pressure of 204/101. CT of the brain showed intraparenchymal hemorrhage centered in the left frontal lobe. The patient was started on IV Cardene drip. Since the patient is being admitted under Neurosurgical Service. PAST MEDICAL HISTORY: As mentioned above in history of present illness. PAST SURGICAL HISTORY: 1. Hysterectomy. 2. Cholecystectomy. FAMILY HISTORY: Reviewed and noncontributory. HOME MEDICATIONS: Please see home medication reconciliation form for updated medications. SOCIAL HISTORY: Denies smoking, alcohol drinking, or drug abuse. ALLERGIES: NO KNOWN ALLERGIES. REVIEW OF SYSTEMS: Review of 14-systems negative except what is mentioned in the history of present illness. PHYSICAL EXAMINATION: GENERAL: The patient is awake, alert, does not appear to be in acute distress. VITAL SIGNS: Blood pressure is 193/96, pulse is 74, respiratory rate is 22, temperature is 99.6, and oxygen saturations 99%. HEAD: Normocephalic and atraumatic. NECK: Supple. No JVD. CHEST: Fair bilateral air entry. HEART: S1 and S2. Regular. ABDOMEN: Soft and nontender. Bowel sounds present. NEUROLOGIC: Awake, alert, and oriented. Cannot appreciate any focal deficits at this point. PSYCH: Unable to assess. EXTREMITIES: No clubbing. No cyanosis. LABORATORY DATA: Sodium 133, BUN is 25, creatinine 1.2, and glucose 310. WBC 10.6, hemoglobin 12.7, and platelets 145. CT of the brain as mentioned above in history of present illness. ASSESSMENT: 1. Intracranial hemorrhage. 2. Hypertensive emergency. 3. Diabetes mellitus, type 2. 4. Chronic kidney disease. 5. Hyperlipidemia. PLAN: 1. Admit. 2. Blood pressure control, and the patient was started on IV Cardene drip. 3. Further management as per neurosurgeon. 4. We will reconcile home medications. 5. DVT prophylaxis, SCDs. Thank you for consulting us. We will follow the patient with you. Job ID: [id number]
[2019-05-20] MEDS: Famotidine/PF 20 mg/2ml Vial SLOW IVP SCH (20:14)
[2019-05-20] MEDS: Acetaminophen 325 MG TAB PO PRN (22:22)
[2019-05-20] MEDS: HumaLOG 300 UNITS/3 ML VIAL SC PRN (22:22)
--- NOTE | 2019-05-21 01:51 | HP ---
HISTORY OF PRESENT ILLNESS: The patient is an 84-year-old female with a past medical history of hypertension, hyperlipidemia, diabetes, who presented to the emergency department for evaluation of headache. History is somewhat limited due to that she is Estonian-speaking only. The patient reports that she has had worsening headache over the last day. Her family brought her to the emergency department for further evaluation and noncontrast CT head was done on arrival, which showed a moderate-size left frontal intracranial hemorrhage with surrounding vasogenic edema, but there was minimal midline shift. She was also noted to be significantly hypertensive initially with systolic greater than 200, but was started on nicardipine in the emergency department, which significantly improved her blood pressure. I am seeing the patient at the bedside in the ICU. She is currently awake, alert, in no acute distress. I used a dish up person service for assistance with the exam. She is moving all 4s without difficulty. PAST MEDICAL HISTORY: 1. Hypertension. 2. Hyperlipidemia. 3. Type 2 diabetes. PAST SURGICAL HISTORY: Cholecystectomy. SOCIAL HISTORY: She lives at home with her family. She does not smoke, drink, or use any drugs. ALLERGIES: SHE HAS NO KNOWN DRUG ALLERGIES. REVIEW OF SYSTEMS: Per HPI. PHYSICAL EXAMINATION: VITAL SIGNS: BP is 119/39, pulse is 89, respiratory rate is 24, she is 97% on room air. HEENT: Head, normocephalic and atraumatic. Eyes, PERRLA. Extraocular movements intact. ENT: Oral mucosa is pink, intact, and moist. She has normal voice. NECK: Free active range of motion. She does not appear to have any meningismus or nuchal rigidity. CARDIAC: Regular rate and rhythm. LUNGS: Symmetric chest expansion. No evidence of dyspnea. MUSCULOSKELETAL: No obvious deformities of the extremities. Symmetric pulses. Moving all 4s without any difficulty. NEUROLOGIC: She is oriented to person, but not place or time. She is otherwise nonfocal on neurologic exam. ASSESSMENT AND PLAN: The patient is an 84-year-old female with acute onset left frontal intracranial hemorrhage and complaining of headache. There is no significant midline shift. Her blood pressure was improved on nicardipine. She was evaluated further with MRI of the brain with and without contrast, which was negative for underlying lesion as well as MRA and MRV which appear negative for vascular abnormality or venous sinus thrombosis. We will continue to monitor closely overnight in the ICU and will repeat a noncontrast head CT in the morning. Her systolic blood pressure should be kept less than 140. She should not be given any anticoagulants. She also has platelets ordered. Considering that she may have a home use of [id number] aspirin, although I was not able to confirm this. I discussed this plan with Dr. Hernandez who is in agreement. Job ID: [id number]
[2019-05-21] MEDS: niCARdipine 25 MG in Sodium Chloride 0.9% 250 ML 240 ML IVPB PRN ×2 (02:34→06:53)
[2019-05-21] MEDS: HumaLOG 300 UNITS/3 ML VIAL SC PRN ×3 (04:08→17:10)
[2019-05-21] MEDS: Lactated Ringer's 1,000 ML IV SCH (05:24)
--- NOTE | 2019-05-21 07:25 | CT ---
PRELIMINARY REPORT/[facility]/EMERGENCY AFTER HOURS PROCEDURE EXAM: CT Head Without Intravenous Contrast. CLINICAL HISTORY: Follow-up intracranial hemorrhage. Sudden altered mental state. TECHNIQUE: Axial computed tomography images of the head/brain without intravenous contrast. COMPARISON: CTSR - CT BRAIN WO CON - 05/20/2019 11:43 AM CDT FINDINGS: BRAIN: Left frontal intraparenchymal hemorrhage, about 4.2 x 3 cm, not significantly changed. Surrou nding vasogenic edema, also not significantly changed. Anterior midline shift 4 mm of the right, also unchanged. No mass lesion. No CT evidence for acute territorial infarct. No extra-axial collection. VENTRICLES: No hydrocephalus. ORBITS: The orbits are unremarkable. SINUSES AND MASTOIDS: The paranasal sinuses and mastoid air cells are clear. SOFT TISSUES: No significant facial or scalp soft tissue swelling evident. No radiopaque foreign body is seen. BONES: No acute skull fracture. IMPRESSION: Left frontal intraparenchymal hemorrhage, about 4.2 x 3 cm, surrounding vasogenic edema, and anterior midline shift 4 mm of the right side; unchanged. ELECTRONICALLY SIGNED BY: Walker Kirkpatrick MD May 21, 2019 2:13:16 AM CDT This report is intended for review by the ordering physician only, in accordance of law. If you recei ve this report in error, please call [facility] at [phone]. FINAL REPORT BRAIN CT WITHOUT IV CONTRAST EMERGENCY AFTER HOURS EXAM: 05/21/2019 COMPARISON: 05/20/2019 FINDINGS/IMPRESSION: Stable left frontal intraparenchymal hematoma with minimal midline shift to the right. No significant new process. This report is in agreement with the preliminary report. Transcribed Date/Time: 05/21/2019 7:35 AM
[2019-05-21] MEDS: Carvedilol 6.25 MG TAB PO SCH ×2 (08:01→17:10)
[2019-05-21] MEDS ORDERED: FLU VACC TS2019-20(65YR UP)/PF 180 MCG/0.5 ML SYRINGE IM ONE (09:00)
[2019-05-21] MEDS: Losartan 25 MG TAB PO SCH (09:00)
[2019-05-21] MEDS: Acetaminophen 325 MG TAB PO PRN ×2 (10:36→20:05)
--- NOTE | 2019-05-21 10:43 | CT ---
CT ANGIOGRAM HEAD: DATE: 05/21/2019. COMPARISON: Head CT 05/21/2019 and 05/20/2019. HISTORY: Intraaxial hemorrhage within the left frontal region. TECHNIQUE: Axial CT imaging obtained at 5 mm intervals from vertex through the skull base without contrast. Subs equently, axial CT imaging at 1.25 mm intervals from the vertex through the skull base with IV contrast using CT angiogram protocol with coronal and sagittal 3-D reformatted imaging. FINDINGS: The noncontrast enhanced imaging demonstrates an intraaxial hemorrhage in the left frontal region alexia suring approximately 4.3 cm in AP dimension, unchanged when compared to the prior CT examinations. There is a stable degree of surrounding vasogenic edema, most prominent along the superior margin of this abnormality, stable as well. There is mass effect on the frontal horn of the left lateral ventricle which is slightly flattened. There is minimal midline shift from left to right at the axial level of the septum pellucidum, unchanged when compared to the recent prior exam, measuring approximately 2-3 mm. The visualized paranasal sinuses and mastoid air cells are well-aerated. No displaced calvarial fract ure is seen. Imaged portions of the distal vertebral arteries are patent. The basilar artery and its branches are patent. No evidence for saccular aneurysm, high-grade stenosis, or vascular occlusion is noted involving the posterior circulation. The imaged extracranial ICA appears patent bilaterally. There is atherosclerotic calcification of the cavernous carotid arteries bilaterally. The A1 segment, region of the anterior communicating artery, and distal anterior cerebral artery branches appear unremarkable. The ICA bifurcation, the M1 segment, and the MCA bifurcation appears unremarkable bilaterally. Distal MCA branches appear intact. No vascular malformation is seen in the left frontal region. No acute osseous abnormality is appreciated. IMPRESSION: Relatively stable nonspecific intra-axial hematoma in the left frontal region. No associated vascular malformation is noted in this region. Transcribed Date/Time: 05/21/2019 10:49 AM
[2019-05-21] MEDS ORDERED: Labetalol HCl 100 MG/20 ML VIAL SLOW IVP PRN (12:25)
--- NOTE | 2019-05-21 13:15 | PRG ---
DATE OF SERVICE: 05/21/2019 The patient is seen and examined. I agree with Lillie Driver's evaluation on 05/20/2019. The patient is an 84-year-old woman, who was acutely less responsive yesterday, found to have a left frontal intracerebral hematoma. The patient is currently alert and interactive and seems generally appropriate. She is Vietnamese-speaking only, but does seem to have appropriate verbal translation from her family. I cannot define any definitive focal deficit. Both CT and MRI revealed a left frontal hematoma without underlying pathologic abnormality as best I can tell. The MRA is of very poor quality and an MRV was unable to be performed. IMPRESSION AND PLAN: We will get a CT angiogram. At her age, this just likely represents amyloid angiopathy with superimposed aspirin use. I believe that if the CTA is negative and if her blood pressure can be well controlled, we can start to mobilize and begin rehab planning. Job ID: [id number]
[2019-05-21] MEDS ORDERED: Iopamidol-370 76% 500 ML 1 ML ONE (15:20)
--- NOTE | 2019-05-21 17:07 | PRG ---
DATE OF SERVICE: 05/21/2019 SERVICE: Pulmonary Medicine. INTERVAL HISTORY: The patient is doing fine from respiratory standpoint. She remains on room air. She was able to tolerate p.o. this morning. Otherwise, there has been no interval change to her condition. Her family indicates that she is a little sleepy, but a touch better than yesterday by comparison. PHYSICAL EXAMINATION: VITAL SIGNS: Afebrile, pulse 76, respirations 16, saturation 97% on room air, blood pressure 134/62. HEENT: Normocephalic and atraumatic. Sclerae white. Conjunctivae pink. Oral mucosa is moist without lesions. LUNGS: Decent air entry. No prolonged expiratory phase or crackling is present. HEART: Normal rate. Regular. ABDOMEN: Soft, nontender, and nondistended. Bowel sounds are positive. MUSCULOSKELETAL: No cyanosis or clubbing. There is no pitting in the bilateral lower extremities. LABORATORY DATA: Blood sugar ranges from 242 to 219. Influenza A and B are negative. IMAGIN. CTA of the [place] demonstrates relatively stable nonspecific intra-axial hematoma of the left frontal region with no associated vascular malformation identified. 2. CT of the brain demonstrates roughly stable area of hemorrhage measuring 4.2 x 3 cm with surrounding vasogenic edema and an anterior midline shift of roughly 4 mm, which is also unchanged. ASSESSMENT: 1. Intraparenchymal hemorrhage of the left frontal lobe. 2. Hypertension. 3. Type 2 diabetes mellitus. DISCUSSION AND PLAN: The patient is doing fine from respiratory standpoint. At this point, she is stable for transition to the floor. When she leaves the ICU, she will have no further requirements for Pulmonary or Critical Care opinion, and I will sign off. Please call with additional questions or concerns through time. Job ID: [id number]
[2019-05-21] MEDS: Famotidine/PF 20 mg/2ml Vial SLOW IVP SCH (20:49)
--- NOTE | 2019-05-21 23:04 | PDOC.HOSPP ---
- Subjective Encounter Date: 05/21/19 Encounter Time: 19:30 Subjective: Patient seen and examined for ICH. Confused. No new complaints. - Objective Vital Signs & Weight: Vital Signs (12 hours) Temp Pulse Pulse Resp BP BP BP 05/21/19 19:35 98.1 F 74 16 141/64 H 05/21/19 17:10 134/62 05/21/19 15:08 98.5 F 76 16 05/21/19 14:01 84 156/71 H 05/21/19 13:33 98.5 F 82 22 H 05/21/19 12:00 98.7 F BP Pulse Ox 05/21/19 19:35 98 05/21/19 17:10 05/21/19 15:08 134/62 97 05/21/19 14:01 05/21/19 13:33 141/65 H 96 05/21/19 12:00 Weight Admit Weight 111 lb 12.8 oz Weight 119 lb 4.321 oz Most Recent Monitor Data Heart Rate from ECG 83 NIBP 127/46 NIBP BP-Mean 96 Respiration from ECG 22 SpO2 96 I&O: 05/20/19 05/21/19 05/22/19 06:59 06:59 06:59 Intake Total 2376 600 Output Total 3 Balance 2376 597 Result Diagrams: 05/20/19 11:37 05/20/19 11:37 Additional Labs: Accuchecks 05/21/19 05/21/19 05/21/19 19:41 16:58 10:12 POC Glucose 186 H 247 H 219 H 05/21/19 04:06 POC Glucose 229 H Radiology Reviewed by me: Yes (CT brain - ICH) EKG Reviewed by me: Yes (Tele SR) Hospitalist ROS - Review of Systems Respiratory: denies: cough, dry, shortness of breath, hemoptysis, SOB with excertion, pleuritic pain, sputum, wheezing, other Cardiovascular: denies: chest pain, palpitations, orthopnea, paroxysmal noc. dyspnea, edema, light headedness, other Gastrointestinal: denies: nausea, vomiting, abdominal pain, diarrhea, constipation, melena, hematochezia, other - Medication Medications: Active Medications Generic Name Dose Route Start Last Admin Trade Name Freq PRN Reason Stop Dose Admin Acetaminophen 650 mg 05/20/19 13:28 05/21/19 20:05 Tylenol PO 650 mg Q6H PRN Administration Fever > 101 or Headache Carvedilol 6.25 mg 05/20/19 17:00 05/21/19 17:10 Coreg PO 6.25 mg BID-WM JOHNNY Administration Insulin Human Lispro 0 units 05/20/19 13:49 05/21/19 17:10 Humalog SC 3 unit .MILD SLIDING SCALE PRN Administration Mild Correctional Scale Losartan Potassium 25 mg 05/21/19 09:00 05/21/19 09:00 Cozaar PO 25 mg DAILY JOHNNY Administration Sodium Chloride 10 ml 05/20/19 13:28 05/21/19 20:51 Flush - Normal Saline IVF 10 ml PRN PRN Administration Saline Flush - Exam General Appearance: NAD Neck: supple, no JVD Heart: RRR, no gallops, no rubs, normal peripheral pulses Respiratory: CTAB, no wheezes, no rales, no ronchi Gastrointestinal: soft, non-tender, non-distended, normal bowel sounds Extremities: no cyanosis, no clubbing, no edema Extremities - other findings: no calf tenderness Neurological: no new deficit Psychiatric - other findings: confused - follows commands Hosp A/P - Plan DVT proph w/SCDs Intracranial hemorrhage/HTN emergency Toxic Metabolic Encephalopathy MARY on CKD 2 (POA) DM2 HLD PLAN: IVF dced Stroke team Cont Coreg Cont Losartan AM labs Cont other meds as above
[2019-05-22 05:12] LABS: #Basophils 0.1 thou/uL (0.0-0.2); #Eosinphils 0.3 thou/uL (0.0-0.7); #Lymphocytes 1.8 thou/uL (1.20-3.40); #Monocytes 0.6 thou/uL (0.11-0.59); #Neutrophils 4.6 thou/uL (1.40-6.50); %Basophils 0.8 % (0.0-1.0); %Eosinophils 4.6 % (0.0-10.0); %Lymphocytes 24.7 % (21.0-51.0); %Monocytes 7.6 % (0.0-10.0); %Neutrophils 62.4 % (42.0-75.0); Hemoglobin 10.6 g/dL (12.0-16.0); Mean Corpuscular HGB CONC 34.4 g/dL (32.0-36.0); Mean Corpuscular Hemoglobin 29.9 pg (27.0-31.0); Mean Corpuscular Volume 86.9 fL (78.0-98.0); Mean Platelet Volume 8.5 fL (7.4-10.4); Platelet Count 265 thou/uL (130-400); RBC Distribution Width 12.2 % (11.5-14.5); Red Blood Cell (RBC) Count 3.53 mill/uL (4.20-5.40); White Blood Cell (WBC) Count 7.3 thou/uL (4.8-10.8)
[2019-05-22 05:39] LABS: Anion Gap 13 mmol/L (10-20); BUN (Urea Nitrogen) 19 mg/dL (9.8-20.1); Calc. Creatinine Clearance 35 mL/min (70-130); Calcium 8.5 mg/dL (7.8-10.44); Carbon Dioxide 22 mmol/L (23-31); Chloride 102 mmol/L (98-107); Estimated GFR-MDRD 52; Glucose 137 mg/dL (83-110); Magnesium 1.4 mg/dL (1.6-2.6); Potassium 3.8 mmol/L (3.5-5.1); Sodium 133 mmol/L (136-145)
[2019-05-22] MEDS ORDERED: Magnesium Sulfate 4 GM in Sodium Chloride 0.9% 250 ML 250 ML IVPB SCH (08:30)
[2019-05-22] MEDS: Insulin Glargine 10 UNITS in Pre-Filled Syringe 1 EACH SC SCH ×2 (09:08→21:22)
[2019-05-22] MEDS: Carvedilol 6.25 MG TAB PO SCH ×2 (09:10→18:25)
[2019-05-22] MEDS: Losartan 25 MG TAB PO SCH (09:11)
[2019-05-22] MEDS: Famotidine 20 MG TAB PO SCH (09:11)
[2019-05-22] MEDS: Acetaminophen 325 MG TAB PO PRN (12:37)
[2019-05-22] MEDS: HumaLOG 300 UNITS/3 ML VIAL SC PRN ×2 (12:38→18:23)
[2019-05-22] MEDS: cloNIDine 0.1 MG TAB PO PRN (21:22)
--- NOTE | 2019-05-22 22:12 | PDOC.HOSPP ---
- Subjective Encounter Date: 05/22/19 Encounter Time: 08:30 Subjective: Patient seen and examined for ICH. Mentation slowly improving. No CP/SOB or new focal deficits. No new complaints. No overnight events - Objective Vital Signs & Weight: Vital Signs (12 hours) Temp Pulse Pulse Pulse Resp BP BP 05/22/19 21:22 160/72 H 05/22/19 19:30 98.5 F 67 16 05/22/19 18:25 160/72 H 05/22/19 15:29 98.3 F 64 16 05/22/19 14:36 65 72 167/70 H 05/22/19 11:36 98.4 F 69 16 BP BP Pulse Ox 05/22/19 21:22 05/22/19 19:30 169/72 H 97 05/22/19 18:25 05/22/19 15:29 155/69 H 98 05/22/19 14:36 178/75 H 05/22/19 11:36 158/67 H 97 Weight Admit Weight 111 lb 12.8 oz Weight 114 lb 3.2 oz Most Recent Monitor Data Heart Rate from ECG 83 NIBP 127/46 NIBP BP-Mean 96 Respiration from ECG 22 SpO2 96 I&O: 05/21/19 05/22/19 05/23/19 06:59 06:59 06:59 Intake Total 2376 600 920 Output Total 3 Balance 2376 597 920 Result Diagrams: 05/22/19 04:55 05/22/19 04:55 Additional Labs: Accuchecks 05/22/19 05/22/19 05/22/19 21:02 16:31 10:38 POC Glucose 206 H 255 H 266 H 05/22/19 05:42 POC Glucose 166 H Laboratory Tests 05/22/19 05/22/19 04:55 04:55 Hemoglobin A1c 9.0 H Magnesium 1.4 L EKG Reviewed by me: Yes (Tele SR) Hospitalist ROS - Review of Systems Respiratory: denies: cough, dry, shortness of breath, hemoptysis, SOB with excertion, pleuritic pain, sputum, wheezing, other Cardiovascular: denies: chest pain, palpitations, orthopnea, paroxysmal noc. dyspnea, edema, light headedness, other Gastrointestinal: denies: nausea, vomiting, abdominal pain, diarrhea, constipation, melena, hematochezia, other - Medication Medications: Active Medications Generic Name Dose Route Start Last Admin Trade Name Sebasq PRN Reason Stop Dose Admin Acetaminophen 650 mg 05/20/19 13:28 05/22/19 12:37 Tylenol PO 650 mg Q6H PRN Administration Fever > 101 or Headache Carvedilol 6.25 mg 05/20/19 17:00 05/22/19 18:25 Coreg PO 6.25 mg BID-WM JOHNNY Administration Clonidine 0.1 mg 05/21/19 12:25 05/22/19 21:22 Catapres PO 0.1 mg Q4H PRN Administration SBP GREATER THAN 160 Famotidine 20 mg 05/22/19 09:00 05/22/19 09:11 Pepcid PO 20 mg Q24HR JOHNNY Administration Insulin Glargine 10 units/ 0.1 mls @ 0 mls/hr 05/22/19 09:00 05/22/19 09:08 Miscellaneous Medication SC 0.1 mls QAM JOHNNY Administration Insulin Glargine 10 units/ 0.1 mls @ 0 mls/hr 05/22/19 21:00 05/22/19 21:22 Miscellaneous Medication SC 0.1 mls HS JOHNNY Administration Insulin Human Lispro 0 units 05/20/19 13:49 05/22/19 18:23 Humalog SC 4 unit .MILD SLIDING SCALE PRN Administration Mild Correctional Scale Losartan Potassium 25 mg 05/21/19 09:00 05/22/19 09:11 Cozaar PO 25 mg DAILY JOHNNY Administration Sodium Chloride 10 ml 05/20/19 13:28 05/21/19 20:51 Flush - Normal Saline IVF 10 ml PRN PRN Administration Saline Flush - Exam General Appearance: NAD Neck: supple, no JVD Heart: RRR, no gallops Respiratory: no wheezes, no ronchi Gastrointestinal: non-tender, non-distended, normal bowel sounds Extremities: no edema Hosp A/P - Plan DVT proph w/SCDs Intracranial hemorrhage/HTN emergency Toxic Metabolic Encephalopathy MARY on CKD 2 (POA) Hypomagnesemia/Hyponatremia DM2 HLD s/p 1 platelets PLAN: Replace Mg Change Lantus to 10 units BID Cont Coreg Increase Losartan to 25 mg BID Cont other meds as above Cont PT DC planning
[2019-05-22] MEDS ORDERED: Losartan 25 MG TAB PO SCH (22:15)
[2019-05-23] MEDS: Carvedilol 6.25 MG TAB PO SCH ×2 (08:28→17:56)
[2019-05-23] MEDS: Losartan 25 MG TAB PO SCH ×2 (08:29→21:30)
[2019-05-23] MEDS: Famotidine 20 MG TAB PO SCH (08:29)
[2019-05-23] MEDS: Insulin Glargine 10 UNITS in Pre-Filled Syringe 1 EACH SC SCH ×2 (10:01→21:30)
[2019-05-23 11:22] VITALS: BMI 20.9
[2019-05-23] MEDS: Acetaminophen 325 MG TAB PO PRN (13:31)
--- NOTE | 2019-05-23 17:17 | PDOC.HOSPP ---
- Subjective Encounter Date: 05/23/19 Encounter Time: 09:00 non-verbal Subjective: Patient seen and examined for ICH. Somnolent. No overnight events - Objective Vital Signs & Weight: Vital Signs (12 hours) Temp Pulse Pulse Pulse Resp BP BP 05/23/19 15:20 98.0 F 58 L 24 H 05/23/19 14:37 63 59 L 165/69 H 05/23/19 11:35 98.3 F 65 20 05/23/19 08:28 143/63 H 05/23/19 07:36 99.2 F 61 22 H BP BP Pulse Ox 05/23/19 15:20 121/58 L 98 05/23/19 14:37 141/63 H 05/23/19 11:35 133/63 98 05/23/19 08:28 05/23/19 07:36 143/63 H 96 Weight Admit Weight 111 lb 12.8 oz Weight 114 lb 3.2 oz Most Recent Monitor Data Heart Rate from ECG 83 NIBP 127/46 NIBP BP-Mean 96 Respiration from ECG 22 SpO2 96 I&O: 05/22/19 05/23/19 05/24/19 06:59 06:59 06:59 Intake Total 600 920 Output Total 3 Balance 597 920 Result Diagrams: 05/22/19 04:55 05/22/19 04:55 Additional Labs: Accuchecks 05/23/19 05/23/19 05/23/19 16:39 10:43 05:58 POC Glucose 246 H 154 H 161 H 05/22/19 21:02 POC Glucose 206 H EKG Reviewed by me: Yes (Tele SR) Hospitalist ROS - Review of Systems Respiratory: denies: cough, dry, shortness of breath, hemoptysis, SOB with excertion, pleuritic pain, sputum, wheezing, other Cardiovascular: denies: chest pain, palpitations, orthopnea, paroxysmal noc. dyspnea, edema, light headedness, other Gastrointestinal: denies: nausea, vomiting, abdominal pain, diarrhea, constipation, melena, hematochezia, other - Medication Medications: Active Medications Generic Name Dose Route Start Last Admin Trade Name Freq PRN Reason Stop Dose Admin Acetaminophen 650 mg 05/20/19 13:28 05/23/19 13:31 Tylenol PO 650 mg Q6H PRN Administration Fever > 101 or Headache Carvedilol 6.25 mg 05/20/19 17:00 05/23/19 08:28 Coreg PO 6.25 mg BID-WM JOHNNY Administration Clonidine 0.1 mg 05/21/19 12:25 05/22/19 21:22 Catapres PO 0.1 mg Q4H PRN Administration SBP GREATER THAN 160 Insulin Glargine 10 units/ 0.1 mls @ 0 mls/hr 05/22/19 09:00 05/23/19 10:01 Miscellaneous Medication SC 0.1 mls QAM JOHNNY Administration Insulin Glargine 10 units/ 0.1 mls @ 0 mls/hr 05/22/19 21:00 05/22/19 21:22 Miscellaneous Medication SC 0.1 mls HS JOHNNY Administration Insulin Human Lispro 0 units 05/20/19 13:49 05/22/19 18:23 Humalog SC 4 unit .MILD SLIDING SCALE PRN Administration Mild Correctional Scale Losartan Potassium 25 mg 05/23/19 09:00 05/23/19 08:29 Cozaar PO 25 mg BID JOHNNY Administration Ondansetron HCl 4 mg 05/20/19 13:28 05/23/19 13:31 Zofran IVP 4 mg BIDPRN PRN Administration Nausea/Vomiting Sodium Chloride 10 ml 05/20/19 13:28 05/23/19 08:29 Flush - Normal Saline IVF 10 ml PRN PRN Administration Saline Flush - Exam General Appearance: NAD Heart: RRR, no gallops Respiratory: no wheezes, no ronchi Gastrointestinal: non-tender, non-distended, normal bowel sounds Extremities: no cyanosis Neurological: no new deficit Hosp A/P - Plan DVT proph w/SCDs Intracranial hemorrhage/HTN emergency Toxic Metabolic Encephalopathy MARY on CKD 2 (POA) Hypomagnesemia/Hyponatremia DM2 HLD s/p 1 platelets PLAN: Cont to monitor BMP in AM Cont Coreg/Losartan Cont Lantus 10 units BID with sliding scale Not stable for dc Cont other meds as above Stroke team Med assistance HHC setup DC in 24 hr if mentation improves
[2019-05-23] MEDS: HumaLOG 300 UNITS/3 ML VIAL SC PRN (17:52)
[2019-05-24 05:42] LABS: Anion Gap 10 mmol/L (10-20); BUN (Urea Nitrogen) 21 mg/dL (9.8-20.1); Calc. Creatinine Clearance 28 mL/min (70-130); Calcium 8.6 mg/dL (7.8-10.44); Carbon Dioxide 24 mmol/L (23-31); Chloride 104 mmol/L (98-107); Estimated GFR-MDRD 42; Glucose 74 mg/dL (83-110); Magnesium 1.8 mg/dL (1.6-2.6); Potassium 4.1 mmol/L (3.5-5.1); Sodium 134 mmol/L (136-145)
[2019-05-24] MEDS ORDERED: glipiZIDE 5 MG TAB PO SCH (07:30)
[2019-05-24] MEDS: Carvedilol 6.25 MG TAB PO SCH (07:41)
[2019-05-24] MEDS: Losartan 25 MG TAB PO SCH (07:41)
[2019-05-24] MEDS: cloNIDine 0.1 MG TAB PO PRN (07:42)
[2019-05-24 12:15] VITALS: BP 112/55; TEMP 98.6
--- NOTE | 2019-05-25 13:11 | DIS ---
DATE OF ADMISSION: 05/20/2019 DATE OF DISCHARGE: 05/24/2019 DISCHARGE DISPOSITION: Home. FOLLOWUP: 1. Follow up with primary care physician at [facility]. 2. [facility] Care was arranged. ALLERGIES: NO KNOWN DRUG ALLERGIES. DISCHARGE MEDICATIONS: 1. Multivitamin 1 tablet daily. 2. Carvedilol 6.25 mg b.i.d. 3. Glipizide 5 mg daily. 4. Losartan 25 mg b.i.d. 5. Clonidine as needed. 6. Basic metabolic profile after 1 week is recommended. Primary care physician advised to follow. INPATIENT BODY PAINTER: Hospitalist Service for medical management. ADMITTING PHYSICIAN: Dr. Hernandez. BRIEF HOSPITAL COURSE: The patient is 84-year-old female with hypertension, who presented to the emergency room with altered mentation. Her workup was consistent with left frontal intracerebral hematoma. She was admitted under Neurosurgery Service. Hospitalist Team was consulted for medical management. She was placed on Cardene drip that was later discontinued. She was then transferred to the Stroke Unit. Her mentation has gradually improved. Her hypertensive medications have been optimized. [facility] has been arranged through [facility]. FINAL DIAGNOSES: 1. Left frontal intracerebral hematoma, probably secondary to uncontrolled hypertension. Other possibility could be amyloid angiopathy with superimposed aspirin use. 2. Toxic metabolic encephalopathy secondary to #1. 3. Hypertensive emergency on admission requiring Cardene drip. 4. Acute kidney injury on chronic kidney disease stage 2. 5. Hyponatremia. 6. Hypomagnesemia. 7. Diabetes mellitus type 2. 8. Hyperlipidemia. 9. Status post 1 unit of platelet this admission. TIME SPENT WITH PATIENT: Total time coordinating the discharge of this patient was 36 minutes. Job ID: [id number]
== END 2019-05-24 12:34 | disposition home health service (06) | DRG 64 ==
LOC: ERS 10:50 → CCU 13:33 → 2SE 05-21 13:29
PROVIDERS: ADMIT Neurological Surgery; ATTEND Internal Medicine
PROC: 30233R1 Transfusion of Nonautologous Platelets into Peripheral Vein, Percutaneous Approach (ICD-10-PCS; principal; 2019-05-20)
DX: I61.8 Other nontraumatic intracerebral hemorrhage (principal); G92 Toxic encephalopathy; G93.6 Cerebral edema; I16.1 Hypertensive emergency; N17.9 Acute kidney failure, unspecified; E87.1 Hypo-osmolality and hyponatremia; E85.89 Other amyloidosis; E83.42 Hypomagnesemia; E78.5 Hyperlipidemia, unspecified; I12.9 Hypertensive chronic kidney disease with stage 1 through stage 4 chronic kidney disease, or unspecified chronic kidney disease; E11.22 Type 2 diabetes mellitus with diabetic chronic kidney disease; N18.2 Chronic kidney disease, stage 2 (mild); Z90.49 Acquired absence of other specified parts of digestive tract; R29.6 Repeated falls; E86.0 Dehydration; R40.2362 Coma scale, best motor response, obeys commands, at arrival to emergency department; R40.2142 Coma scale, eyes open, spontaneous, at arrival to emergency department; R40.2252 Coma scale, best verbal response, oriented, at arrival to emergency department
CPT/HCPCS: 36415; 36416; 36430; 70450; 70496; 70544; 70553; 80048; 80053; 83036; 83735; 83930; 84484; 85025; 85610; 85730; 86850; 86900; 86901; 87804; 90471; 90662; 93005; 96365; 96366; 99292; A9579; G0008; J1815; J2405; J3475; J7050; P9035; Q9967; S0028

== ENCOUNTER 2019-05-24 19:19 | Inpatient (IN) | payer SELFPAY ==
[2019-05-24 19:41] LABS: #Eosinphils 0.1 thou/uL (0.0-0.7); #Lymphocytes 1.1 thou/uL (1.20-3.40); #Monocytes 0.5 thou/uL (0.11-0.59); #Neutrophils 8.5 thou/uL (1.40-6.50); %Basophils 0.4 % (0.0-1.0); %Eosinophils 1.4 % (0.0-10.0); %Lymphocytes 10.9 % (21.0-51.0); %Monocytes 4.8 % (0.0-10.0); %Neutrophils 82.5 % (42.0-75.0); Hemoglobin 11.8 g/dL (12.0-16.0); Mean Corpuscular HGB CONC 33.9 g/dL (32.0-36.0); Mean Corpuscular Hemoglobin 29.3 pg (27.0-31.0); Mean Corpuscular Volume 86.7 fL (78.0-98.0); Mean Platelet Volume 8.2 fL (7.4-10.4); Platelet Count 219 thou/uL (130-400); RBC Distribution Width 12.1 % (11.5-14.5); Red Blood Cell (RBC) Count 4.02 mill/uL (4.20-5.40); White Blood Cell (WBC) Count 10.3 thou/uL (4.8-10.8)
[2019-05-24 19:48] LABS: INR-International Normal Ratio 0.9; PTT 23.6 SEC (22.9-36.1); Prothrombin Time 12.3 SEC (12.0-14.7)
[2019-05-24] MEDS ORDERED: Dextrose 50% Abboject 50 ML SYRINGE ONE ×2 (19:48→19:49)
[2019-05-24] MEDS ORDERED: niCARdipine 20MG In NaCl 0 MG/0 ML BAG ONE (19:51)
--- NOTE | 2019-05-24 19:52 | CT ---
Head CT without contrast 05/24/2019: COMPARISON: 05/21/2019 HISTORY: Reevaluate intracranial hemorrhage, altered mental status TECHNIQUE: Axial CT imaging at 5 mm intervals from vertex through skull base without contrast FINDINGS: There is an intra-axial hemorrhage in the left frontal lobe measuring 4.0 x 3.4 cm, slightl y less conspicuous than on the 05/21/2019 study. There is surrounding vasogenic edema, similar when compared to the prior exam. There is mild mass effect on the frontal horn of the left lateral ventric le, stable as well. There may be minimal extra-axial hemorrhage within the left frontal region medially/inferiorly as well, stable when compared to the prior exam. The visualized paranasal sinuses and mastoid air cells are well-aerated. No displaced calvarial fract ure. No new hemorrhage. IMPRESSION: Intra-axial hemorrhage in the left frontal lobe with surrounding vasogenic edema is again demonstrated. There has been little interval change when compared to the 05/21/2019 exam.
[2019-05-24 20:14] LABS: ALT (SGPT) 13 U/L (8-55); AST (SGOT) 13 U/L (5-34); Albumin 3.6 g/dL (3.4-4.8); Alkaline Phosphatase 99 U/L (40-110); Anion Gap 15 mmol/L (10-20); BUN (Urea Nitrogen) 21 mg/dL (9.8-20.1); Bilirubin, Total 0.5 mg/dL (0.2-1.2); Calc. Creatinine Clearance 0 mL/min (70-130); Calcium 8.9 mg/dL (7.8-10.44); Carbon Dioxide 21 mmol/L (23-31); Chloride 103 mmol/L (98-107); Estimated GFR-MDRD 43; Globulin 3.2 g/dL (2.4-3.5); Glucose 66 mg/dL (83-110); Lipase 17 U/L (8-78); Potassium 4.1 mmol/L (3.5-5.1); Protein, Total 6.8 g/dL (6.0-8.3); Sodium 135 mmol/L (136-145)
--- NOTE | 2019-05-24 20:32 | RAD ---
Portable frontal chest radiograph: 05/24/2019 COMPARISON: 02/27/2018 HISTORY: Altered mental status FINDINGS: There is atherosclerotic calcification of the aortic arch. There is mild increased linear d ensity in the mid right lung zone, stable. Stable calcification noted at the base of the neck medially on the left. There is subtle mild increased density in the left lung base, new when compared to prior imaging. Thi s may signify mild left basilar volume loss or mild infiltrate. Small left pleural effusion cannot be excluded. IMPRESSION: Mild new nonspecific increased density in the left lung base.
[2019-05-24 21:01] LABS: Bilirubin Negative (Negative); Blood, Urine Negative (Negative); Glucose, Urine (Dipstick) 500 mg/dL (Negative); Leukocyte Negative (Negative); Nitrite Negative (Negative); Protein, Urine (Dipstick) Negative (Neg-Trace)
[2019-05-24 21:03] LABS: Clarity Clear (Clear)
[2019-05-24] MEDS ORDERED: niCARdipine 20MG In NaCl 20 MG/200 ML BAG ONE (22:32)
[2019-05-24] MEDS ORDERED: Calcium Gluc 4.6 MEQ/10 ML (100 MG/ML) ONE (23:28)
[2019-05-24] MEDS ORDERED: Calcium Chloride 1 GM/10 ML Abboject SYRINGE ONE (23:34)
[2019-05-24] MEDS ORDERED: Atropine Sulfate 1 mg/10 ml Syringe ONE (23:39)
--- NOTE | 2019-05-25 01:31 | HP ---
CHIEF COMPLAINT: Altered mental status. HISTORY OF PRESENT ILLNESS: Ms. Aguillon is an 84-year-old female who was just discharged from the hospital after being admitted for intracranial hemorrhage. The patient was discharged this morning from the hospital after being diagnosed with intraparenchymal hemorrhage 4 days ago. As per patient's son, patient suddenly became unresponsive. They attempted to wake her up. It took him at least a minute to wake her up. They thought that her blood glucose is low. They attempted to put glucose in her mouth. EMS blood glucose was 95. Initial blood glucose in the emergency room was69. In the emergency room, the patient is awake, answering questions and moving all extremities. Workup in the emergency room including CT of the brain showed intraaxial hemorrhage in the left frontal lobe. There has been little change compared to 05/21/2019. ED physician consulted with neurosurgeon who advised to admit the patient under Medical Service. Patient's initial blood pressure was high with systolic in the 200s. The patient was started on IV Cardene drip. While in the emergency room, the patient had briefly became unresponsive again. Apparently, patient became bradycardic, lost a pulse, CPR was performed for 1 minute and the patient regained consciousness and vital signs. ED physician rediscussed the case again with the neurosurgeon. Neurosurgeon is aware of the findings. In the meantime, the patient is being admitted to the intensive care unit for further management. PAST MEDICAL HISTORY: 1. Diabetes mellitus. 2. Intracranial hemorrhage. 3. Hypertension. 4. Hyperlipidemia. PAST SURGICAL HISTORY: 1. Hysterectomy. 2. Cholecystectomy. SOCIAL HISTORY: No history of smoking, drinking, or drug abuse. FAMILY HISTORY: Reviewed and noncontributory. ALLERGIES: NO KNOWN ALLERGIES. REVIEW OF SYSTEMS: Review of 14 systems negative except what is mentioned in history of present illness. PHYSICAL EXAMINATION: GENERAL: The patient is awake, alert, oriented, no acute distress. LATEST VITAL SIGNS: Blood pressure 146/69, pulse is 81, respiratory rate is 18, pulse oximetry 98%. HEAD AND NECK: Normocephalic, atraumatic. NECK: Supple. No JVD. CHEST: Fair bilateral air entry. HEART: S1, S2. Regular. ABDOMEN: Soft, nontender. Bowel sounds present. NEUROLOGIC: Awake, alert, and oriented x3. No focal deficits. PSYCHIATRIC: Unable to assess. EXTREMITIES: No clubbing or cyanosis. LABORATORY DATA: Sodium 135, potassium 4.1, BUN is 21, creatinine 1.1. Troponin is 0.02. CT of the brain as mentioned above in history of present illness. WBC count is 10.3, hemoglobin 11.8. ASSESSMENT AND PLAN: 1. Acute encephalopathy, cardiac arrest brief with return of spontaneous circulation. 2. Hypertensive urgency/emergency. 3. Intracranial hemorrhage. 4. Diabetes mellitus. 5. Hyperlipidemia. PLAN: 1. Admit to ICU. 2. Neurosurgeon consultedand was made aware of the findings. ED physician reviewed the CT results with the neurosurgeon and updated the neurosurgeon regarding latest condition including the brief cardiac arrest. 3. Monitor and control blood pressure. The patient was started on IV cardene drip. 4. Reconcile home medications. 5. Consider Cardiology consultation in a.m. for evaluation and further recommendations. 6. Consult independent driver in a.m. for critical care management. 7. Reconcile home medications. 8. DVT prophylaxis as appropriate. 9. Expected length of stay, 2 midnights or more. Job ID: [id number] [facility]
[2019-05-25] MEDS: Dextrose 5 %-0.45 % NaCl 1,000 ML IV SCH ×2 (04:06→18:41)
[2019-05-25 04:14] VITALS: BMI 20.9
[2019-05-25 04:20] LABS: #Eosinphils 0.1 thou/uL (0.0-0.7); #Lymphocytes 1.3 thou/uL (1.20-3.40); #Monocytes 0.6 thou/uL (0.11-0.59); #Neutrophils 9.1 thou/uL (1.40-6.50); %Basophils 0.3 % (0.0-1.0); %Eosinophils 0.8 % (0.0-10.0); %Lymphocytes 11.4 % (21.0-51.0); %Monocytes 5.4 % (0.0-10.0); %Neutrophils 82.1 % (42.0-75.0); Hemoglobin 11.9 g/dL (12.0-16.0); Mean Corpuscular Hemoglobin 28.8 pg (27.0-31.0); Mean Corpuscular Volume 87.4 fL (78.0-98.0); Mean Platelet Volume 8.2 fL (7.4-10.4); Platelet Count 256 thou/uL (130-400); RBC Distribution Width 12.4 % (11.5-14.5); Red Blood Cell (RBC) Count 4.14 mill/uL (4.20-5.40); White Blood Cell (WBC) Count 11.1 thou/uL (4.8-10.8)
[2019-05-25 04:54] LABS: Anion Gap 14 mmol/L (10-20); BUN (Urea Nitrogen) 18 mg/dL (9.8-20.1); Calc. Creatinine Clearance 33 mL/min (70-130); Carbon Dioxide 21 mmol/L (23-31); Chloride 102 mmol/L (98-107); Estimated GFR-MDRD 48; Glucose 144 mg/dL (83-110); Sodium 133 mmol/L (136-145)
[2019-05-25] MEDS: niCARdipine 25 MG in Sodium Chloride 0.9% 250 ML 240 ML IVPB SCH ×2 (05:03→09:24)
[2019-05-25] MEDS: Losartan 25 MG TAB PO SCH ×2 (09:23→20:11)
[2019-05-25] MEDS: Famotidine/PF 20 mg/2ml Vial SLOW IVP SCH ×2 (09:23→20:11)
[2019-05-25] MEDS: Carvedilol 6.25 MG TAB PO SCH ×2 (09:23→20:11)
--- NOTE | 2019-05-25 09:46 | CON ---
DATE OF CONSULTATION: HISTORY OF PRESENT ILLNESS: The patient is an 84-year-old female, who is known to us for recent evaluation of left frontal intracranial hemorrhage. The patient was admitted last week on 05/20/2019. At that time, the patient presented to the emergency department for headache and elevated blood pressure. A noncontrast CT revealed a left frontal acute intracranial hemorrhage. She was admitted to the ICU where she was monitored closely. She also had MRI, MRA and MRV of the brain , which were negative for underlying aneurysm, vascular abnormality or other lesion. The patient was eventually transitioned to the floor after she remained stable in the ICU and had several stable followup scans. She was eventually transitioned to home. Last night she was brought to the ER again by her family for what they report as some increased aphasia. Upon arrival to the ER, she was found to be slightly hypoglycemic at 69 with initial Accu-Chek, and she also was found to have significantly hypertensive systolic blood pressure of 256. A new noncontrast head CT was done which was notable for persistent left frontal intracranial hemorrhage, but this appears stable with minimal mass effect and a midline shift compared to prior scans. The patient was treated with Cardene for her blood pressure. Following treatment with this medication, patient became significantly bradycardic and unfortunately coded in the emergency department. She was resuscitated by the team and she had another followup noncontrast CT head which again shows stable left frontal intracranial hemorrhage. She has been admitted to the Medicine Service for these events and Neurosurgery has been asked to consult. PAST MEDICAL HISTORY: Diabetes, hypertension, left frontal intracranial hemorrhage, type 2 diabetes, hyperlipidemia. PAST SURGICAL HISTORY: Hysterectomy, cholecystectomy. SOCIAL HISTORY: She lives at home with her family. She does not smoke, drink, or use any drugs. She has no known drug allergies. REVIEW OF SYSTEMS: Per HPI. PHYSICAL EXAMINATION: I visited the patient at the bedside this morning. VITAL SIGNS: BP is 152/49, heart rate is 65. She is 97% on room air. CONSTITUTIONAL: She is awake, alert, in no acute distress. HEENT: Head, normocephalic and atraumatic. Eyes, PERRLA. Extraocular movements intact. ENT, moist mucosa CARDIOVASCULAR: Regular rate and rhythm. PULMONARY: Symmetric chest expansion. No evidence of dyspnea. MUSCULOSKELETAL: She is moving all 4s without difficulty. EXTREMITIES: [place], intact, and warm. NEUROLOGIC: She is alert and appropriate. She is moving all 4s without any difficulty. ASSESSMENT AND PLAN: This is an 84-year-old female known to us for prior left frontal intracranial hemorrhage, who was brought for some increased aphasia to the ED last night. Her followup CTs x2 since this return have both showed a stable left frontal intracranial hemorrhage. The patient did code in the emergency department after becoming significantly bradycardic. At this point, the patient appears to have a stable left frontal intracranial hemorrhage. I do not feel that this is the contributing to her recent cardiac event. She should undergo additional evaluation by the Medical and Cardiovascular teams. No plans for acute neurosurgical intervention. Please reach out to Neurosurgery for additional questions or concerns. Job ID: [id number] [facility]
--- NOTE | 2019-05-25 12:04 | CT ---
Exam: Brain CT without IV contrast: HISTORY: Altered mental status, cardiac arrest COMPARISON: 05/24/2019 FINDINGS: Persistent left frontal intraparenchymal hematoma. There appears to be 1-2 mm more marked right sided midline shift when compared to the earlier study. No evidence for new hemorrhage. IMPRESSION: Left frontal intraparenchymal hematoma with minimal right-sided midline shift, slightly worse than on prior study. No new hemorrhage.
--- NOTE | 2019-05-25 12:22 | CON ---
DATE OF TELEMEDICINE CONSULTATION: 05/25/2019 CHIEF COMPLAINT: Altered mental status. HISTORY OF PRESENT ILLNESS: The patient was admitted last week with intracerebral hemorrhage. Per son-in-law, she is staying with her son and last night they noticed her blood sugar was at 74. She felt sleepy and tired. With the reading of low blood sugar, they called ambulance and brought her here. She never had a previous history of stroke. She went home last week and came back through the ER. She has been somewhat confused. At this time, Neurology consultation was requested for evaluation of mental status. PREVIOUS MEDICAL HISTORY: Per the patient, positive for diabetes and hypertension and intracranial hemorrhage, hyperlipidemia. PAST SURGICAL HISTORY: Hysterectomy, cholecystectomy. SOCIAL HISTORY: She is a nonsmoker. Does not drink alcohol and she lives with her son. ALLERGIES: NO KNOWN DRUG ALLERGIES. FAMILY HISTORY: No family history of CVA or hypertension. Five of her family members have diabetes. REVIEW OF SYSTEMS: Difficult to obtain due to language barrier and the patient is being slightly confused. CURRENT MEDICATIONS: Noted. LABORATORY WORKUP: The patient's white count 11.1, hemoglobin 11.9, hematocrit 36.2, platelet count 256. Chemistry; sodium 133, potassium 4, chloride 102, bicarb 21, BUN 18, creatinine 1.09, glucose 144, and calcium 10. Creatine kinase 27. Liver functions are within normal limits. Lipid profile testing is pending. Her CT of the head was completed yesterday at this admission and CT showed stable intra-axial hemorrhage in the left frontal lobe with surrounding vasogenic edema and there has been little interval change when compared to the scan from 05/21/2019 exam and I also reviewed her primary admitting physician's note and I believe Neurosurgery is also consulted on this patient. PHYSICAL EXAMINATION: VITAL SIGNS: Temperature was 98.7, blood pressure 139/49, pulse 81, respiratory rate 20, O2 saturation 98%. GENERAL APPEARANCE: Well-built, well-nourished lady, who seems to have a flat affect. CHEST: Clear vesicular breathing. CARDIOVASCULAR: S1 and S2 heard. No murmurs. NEUROLOGIC: Higher intellectual function. She does not know the year, but she knows she is in [place], [place], and is able to identify family members. Cranial nerves 2 through 12. Mild facial droop on the left side. Pupils 3 mm, equal and reactive to light bilaterally and normal extraocular movements. Normal sensation of face bilaterally. Tongue midline. Normal elevation of palate. Normal hearing bilaterally. Motor examination, she had normal strength throughout, but had a slight decrease in the left arm. She tends to guard and concerned about the IV in the left arm. Overall, muscle groups tested are deltoid, biceps, triceps, wrist extension and flexion, finger extension and flexion bilaterally. Deep tendon reflexes were absent throughout. Sensory normal bilaterally. Cerebellar normal [id number] and [id number]. IMPRESSION: The patient with recent history of intracerebral hemorrhage as noted in the CT findings above. She is back to the hospital with tiredness and fluctuations in blood glucose. Her current examination is essentially normal except for mild confusion. She does not seem to have any significant neurological deficits from the intracerebral hemorrhage. At this time, normalizing her blood sugars and blood pressure and monitoring for any urinary infection or other sources of infection would be most important. I do think this fluctuation of mental status could be secondary to her changes in blood sugar levels. Please call Neurology if you have any further questions. Job ID: [id number] [facility]
--- NOTE | 2019-05-25 17:02 | PDOC.HOSPP ---
- Subjective Encounter Date: 05/25/19 Encounter Time: 16:35 Subjective: f/u for - Objective Vital Signs & Weight: Vital Signs (12 hours) Temp Pulse Pulse BP BP BP Pulse Ox 05/25/19 12:00 98.0 F 05/25/19 11:30 66 64 132/48 L 170/53 H 05/25/19 09:23 141/47 H 05/25/19 08:00 98.7 F 99 Pulse Ox Pulse Ox 05/25/19 12:00 05/25/19 11:30 99 100 05/25/19 09:23 05/25/19 08:00 Weight Admit Weight 118 lb 9.739 oz Weight 118 lb 9.739 oz Most Recent Monitor Data Heart Rate from ECG 71 NIBP 154/59 NIBP BP-Mean 74 Respiration from ECG 25 SpO2 99 I&O: 05/24/19 05/25/19 05/26/19 06:59 06:59 06:59 Intake Total 180.9 Output Total 600 550 Balance -419.1 -550 Result Diagrams: 05/25/19 03:59 05/25/19 03:59 Additional Labs: Accuchecks 05/25/19 05/25/19 05/24/19 11:53 06:22 23:46 POC Glucose 237 H 166 H 231 H 05/24/19 05/24/19 20:51 19:28 POC Glucose 289 H 69 L Microbiology 05/24/19 20:58 Venous blood - Right Hand Blood Culture - Preliminary Specimen has been received and culture in progress. No Growth to date. 05/24/19 20:58 Venous blood - Left Hand Blood Culture - Preliminary Specimen has been received and culture in progress. No Growth to date. 05/24/19 20:40 Urine Straight Catheter Urine Culture - Preliminary NO GROWTH AT 12 HOURS Laboratory Tests 05/24/19 05/24/19 19:33 20:58 WBC 10.3 Hgb 11.8 L Magnesium 1.7 Radiology Reviewed by me: Yes (CT brain - L frontal intracerebral hematoma, minimal R shift) EKG Reviewed by me: Yes (Tele - SR) Hospitalist ROS - Medication Medications: Active Medications Generic Name Dose Route Start Last Admin Trade Name Freq PRN Reason Stop Dose Admin Carvedilol 6.25 mg 05/25/19 09:00 05/25/19 09:23 Coreg PO 6.25 mg BID JOHNNY Administration Famotidine 20 mg 05/25/19 09:00 05/25/19 09:23 Pepcid SLOW IVP 20 mg Q12HR JOHNNY Administration Nicardipine HCl 25 mg/ Sodium 250 mls @ 0 mls/hr 05/24/19 20:00 05/25/19 09: 24 Chloride IVPB 250 mls INF JOHNNY Administration Protocol As Directed Dextrose/Sodium Chloride 1,000 mls @ 50 mls/hr 05/24/19 22:30 05/25/19 04:06 D5 1/2 Ns IV 1,000 mls .Q20H JOHNNY Administration Losartan Potassium 25 mg 05/25/19 09:00 05/25/19 09:23 Cozaar PO 25 mg BID JOHNNY Administration - Exam General Appearance: NAD, awake alert Eye: PERRL, anicteric sclera ENT: normocephalic atraumatic, no oropharyngeal lesions Neck: supple, symmetric, no JVD, no thyromegaly, no lymphadenopathy Heart: RRR, no murmur, no gallops, no rubs, normal peripheral pulses Heart - other findings: S1,S2 Respiratory: CTAB, no wheezes, no rales, no ronchi, normal chest expansion Gastrointestinal: soft, non-tender, non-distended, normal bowel sounds, no palpable masses, no hepatomegaly Extremities: no cyanosis, no clubbing, no edema Skin: normal turgor, no lesions Neurological: no new deficit Neurological - other findings: mild L facial droop Musculoskeletal: normal tone, normal strength, generalized weakness Psychiatric: oriented to person Hosp A/P (1) Acute metabolic encephalopathy Code(s): G93.41 - METABOLIC ENCEPHALOPATHY Status: Acute Plan: Likely due to mild hypoglycemia and recent ICH, resolved (2) Cardiac arrest as complication of care Code(s): LDO4640 - Status: Acute Plan: Secondary to Cardene gtt with ROSC, no residual effects noted (3) MARY (acute kidney injury) Code(s): N17.9 - ACUTE KIDNEY FAILURE, UNSPECIFIED Status: Acute Plan: Mild, resolving, avoid nephrotoxic meds and limit contrast (4) DM2 (diabetes mellitus, type 2) Status: Chronic Plan: ISS, ADA, serial accuchecks (5) HTN (hypertension) Code(s): I10 - ESSENTIAL (PRIMARY) HYPERTENSION Status: Chronic Qualifiers: Hypertension type: essential hypertension Qualified Code(s): I10 - Essential (primary) hypertension Plan: HTN urgency resolved, initially on Cardene gtt now resuming home BP meds - Plan PT/OT, social work assistant, DVT proph w/SCDs Stable overall Resume home BP regimen ISS/ADA diet PT/OT for functional assessment Transfer to Stroke Unit AM lab: BMP, CBC
[2019-05-25] MEDS ORDERED: HumaLOG 300 UNITS/3 ML VIAL SC PRN ×2 (17:20)
[2019-05-25] MEDS ORDERED: Dextrose 50% Abboject 50 ML SYRINGE SLOW IVP PRN (17:20)
[2019-05-25] MEDS ORDERED: Dextrose 5% in Water 1,000 ML IV PRN (17:20)
[2019-05-25] MEDS: Multivit, Therapeutic 1 TAB PO SCH (17:37)
[2019-05-25] MEDS: cloNIDine 0.1 MG TAB PO PRN (17:37)
[2019-05-25] MEDS ORDERED: Cepastat Lozenges 1 LOZ PO PRN (23:15)
[2019-05-26 04:39] LABS: Anion Gap 11 mmol/L (10-20); BUN (Urea Nitrogen) 20 mg/dL (9.8-20.1); Calc. Creatinine Clearance 33 mL/min (70-130); Carbon Dioxide 25 mmol/L (23-31); Chloride 101 mmol/L (98-107); Estimated GFR-MDRD 49; Glucose 114 mg/dL (83-110); Potassium 4.2 mmol/L (3.5-5.1); Sodium 133 mmol/L (136-145)
[2019-05-26 04:57] LABS: Band 6 % (5-11); Eosinophils 3 % (0-10); Hemoglobin 10.6 g/dL (12.0-16.0); Lymphocytes 14 % (21-51); MDiff Complete? YES; Mean Corpuscular HGB CONC 34.5 g/dL (32.0-36.0); Mean Corpuscular Hemoglobin 29.8 pg (27.0-31.0); Mean Corpuscular Volume 86.3 fL (78.0-98.0); Mean Platelet Volume 9.3 fL (7.4-10.4); Monocytes 3 % (0-10); Neutrophil 74 % (42-75); Platelet Count 242 thou/uL (130-400); RBC Distribution Width 12.4 % (11.5-14.5); Red Blood Cell (RBC) Count 3.55 mill/uL (4.20-5.40); White Blood Cell (WBC) Count 8.2 thou/uL (4.8-10.8)
[2019-05-26] MEDS: Losartan 25 MG TAB PO SCH ×2 (08:02→21:17)
[2019-05-26] MEDS: Carvedilol 6.25 MG TAB PO SCH ×2 (08:02→21:17)
[2019-05-26] MEDS: glipiZIDE 5 MG TAB PO SCH (08:02)
[2019-05-26] MEDS: Famotidine/PF 20 mg/2ml Vial SLOW IVP SCH ×2 (08:02→21:17)
--- NOTE | 2019-05-26 10:26 | CON ---
DATE OF CONSULTATION: 05/26/2019 HISTORY OF PRESENT ILLNESS: Ms. Aguillon is an 84-year-old female presented with hypertension. She actually had a brief cardiac arrest in the emergency department, did not require intubation. We were consulted because of her presence in the Critical Care Unit. She does not speak [place]ron[place], daughter is in the room translating. PAST MEDICAL HISTORY: 1. Remarkable for diabetes. 2. Hypertension. 3. History of frontal intracranial hemorrhage. 4. History of lipid disorder. 5. Status post hysterectomy. 6. Status post cholecystectomy. 7. She is a nonsmoker and nondrinker. ALLERGIES: REPORTS NO DRUG ALLERGIES. REVIEW OF SYSTEMS: Otherwise negative. PHYSICAL EXAMINATION: VITAL SIGNS: Blood pressure 160/58, heart rate 60, respiratory rate is 18, oximetry is 99%. HEENT: Pupils are equal. Sclerae are anicteric. NECK: Supple. LUNGS: Clear. HEART: Regular rhythm. ABDOMEN: Soft. EXTREMITIES: Without clubbing, cyanosis, or edema. LABORATORY DATA: White count 8.2, hemoglobin 10.6, platelets 242. Electrolytes are unremarkable. IMPRESSION: Hypertension. There is some question as to whether or not the cardiac arrest was related to a calcium infusion. The patient is stable to move out of Critical Care in my opinion. TIME SPENT: This is a 50-minute consult, 50% of the time spent on the unit coordinating care. Job ID: [id number] [facility]
[2019-05-26] MEDS: Multivit, Therapeutic 1 TAB PO SCH (18:22)
--- NOTE | 2019-05-26 18:28 | PDOC.HOSPP ---
- Subjective Encounter Date: 05/26/19 Encounter Time: 17:30 Subjective: f/u for encephalopathy, brief cardiac arrest with ROSC likely iatrogenic. Overall feels ok and no new events reported. - Objective Vital Signs & Weight: Vital Signs (12 hours) Temp Pulse Pulse Pulse Resp BP BP 05/26/19 16:21 05/26/19 15:42 98.2 F 64 18 05/26/19 14:00 97.8 F 64 18 05/26/19 09:23 63 134 H 171/49 H 05/26/19 08:02 161/58 H 05/26/19 07:52 BP BP Pulse Ox 05/26/19 16:21 99 05/26/19 15:42 113/71 99 05/26/19 14:00 196/96 H 99 05/26/19 09:23 171/61 H 05/26/19 08:02 05/26/19 07:52 99 Weight Admit Weight 118 lb 9.739 oz Weight 117 lb 8.102 oz Most Recent Monitor Data Heart Rate from ECG 68 NIBP 174/83 NIBP BP-Mean 141 Respiration from ECG 20 SpO2 100 I&O: 05/25/19 05/26/19 05/27/19 06:59 06:59 06:59 Intake Total 180.9 1100 0 Output Total 600 1350 250 Balance -419.1 -250 -250 Result Diagrams: 05/26/19 03:12 05/26/19 03:12 Additional Labs: Accuchecks 05/26/19 05/26/19 05/26/19 17:58 11:28 06:19 POC Glucose 116 H 134 H 110 05/25/19 05/25/19 23:25 20:12 POC Glucose 113 H 170 H Microbiology 05/24/19 20:58 Venous blood - Right Hand Blood Culture - Preliminary Specimen has been received and culture in progress. No Growth to date. 05/24/19 20:58 Venous blood - Left Hand Blood Culture - Preliminary Specimen has been received and culture in progress. No Growth to date. 05/24/19 20:40 Urine Straight Catheter Urine Culture - Preliminary NO GROWTH AT 12 HOURS Laboratory Tests 05/24/19 05/24/19 19:33 20:58 WBC 10.3 Hgb 11.8 L Magnesium 1.7 Hospitalist ROS - Medication Medications: Active Medications Generic Name Dose Route Start Last Admin Trade Name Freq PRN Reason Stop Dose Admin Carvedilol 6.25 mg 05/25/19 09:00 05/26/19 08:02 Coreg PO 6.25 mg BID JOHNNY Administration Clonidine 0.1 mg 05/25/19 17:18 05/25/19 17:37 Catapres PO 0.1 mg BID PRN Administration SBP Greater Than 180 Famotidine 20 mg 05/25/19 09:00 05/26/19 08:02 Pepcid SLOW IVP 20 mg Q12HR JOHNNY Administration Glipizide 5 mg 05/26/19 07:30 05/26/19 08:02 Glucotrol PO 5 mg DAILY-AC JOHNNY Administration Nicardipine HCl 25 mg/ Sodium 250 mls @ 0 mls/hr 05/24/19 20:00 05/25/19 09: 24 Chloride IVPB 250 mls INF JOHNNY Administration Protocol As Directed Dextrose/Sodium Chloride 1,000 mls @ 50 mls/hr 05/24/19 22:30 05/25/19 18:41 D5 1/2 Ns IV Not Given .Q20H JOHNNY Insulin Human Lispro 0 units 05/25/19 17:20 05/25/19 17:37 Humalog SC 3 unit .MILD SLIDING SCALE PRN Administration Mild Correctional Scale Losartan Potassium 25 mg 05/25/19 09:00 05/26/19 08:02 Cozaar PO 25 mg BID JOHNNY Administration Multivitamins 1 tab 05/25/19 18:00 05/26/19 18:22 Theragran PO 1 tab 1800 JOHNNY Administration Throat Lozenges 1 toy 05/25/19 23:15 05/25/19 23:20 Cepastat Lozenges PO 1 toy Q2H PRN Administration Cough - Exam General Appearance: NAD, awake alert Eye: PERRL, anicteric sclera ENT: normocephalic atraumatic, no oropharyngeal lesions Neck: supple, symmetric, no JVD, no thyromegaly Heart: RRR, no murmur, no gallops, no rubs, normal peripheral pulses Respiratory: CTAB, no wheezes, no rales, no ronchi, normal chest expansion Gastrointestinal: soft, non-tender, non-distended, normal bowel sounds, no palpable masses Extremities: no cyanosis, no clubbing, no edema Skin: normal turgor, no lesions Neurological - other findings: mild L facial droop Musculoskeletal: normal tone, generalized weakness Hosp A/P (1) Acute metabolic encephalopathy Code(s): G93.41 - METABOLIC ENCEPHALOPATHY Status: Acute Plan: Improved, likely multifactorial, supportive mgmt (2) Cardiac arrest as complication of care Code(s): IYH8601 - Status: Acute Plan: Brief episode with ROSC, continue supportive mgmt (3) MARY (acute kidney injury) Code(s): N17.9 - ACUTE KIDNEY FAILURE, UNSPECIFIED Status: Acute Plan: Improved, avoid nephrotoxic meds and limit contrast (4) DM2 (diabetes mellitus, type 2) Status: Chronic Plan: Continue Glipizide, ISS, serial accuchecks, ADA (5) HTN (hypertension) Code(s): I10 - ESSENTIAL (PRIMARY) HYPERTENSION Status: Chronic Qualifiers: Hypertension type: essential hypertension Qualified Code(s): I10 - Essential (primary) hypertension Plan: Improved, continue home BP regimen - Plan PT/OT, hospice social worker, out of bed/ambulate, DVT proph w/SCDs Stable overall Resume home BP regimen ISS/ADA diet PT/OT for functional assessment Transfer to Stroke Unit OOB with PT Likely home in am
[2019-05-26] MEDS: Dextrose 5 %-0.45 % NaCl 1,000 ML IV SCH (18:46)
[2019-05-27] MEDS: cloNIDine 0.1 MG TAB PO PRN (06:24)
[2019-05-27 07:43] VITALS: TEMP 97.8
[2019-05-27] MEDS: glipiZIDE 5 MG TAB PO SCH (08:19)
[2019-05-27] MEDS: Losartan 25 MG TAB PO SCH (08:19)
[2019-05-27] MEDS: Carvedilol 6.25 MG TAB PO SCH (08:19)
[2019-05-27] MEDS: Famotidine/PF 20 mg/2ml Vial SLOW IVP SCH (08:19)
[2019-05-27] MEDS: Dextrose 5 %-0.45 % NaCl 1,000 ML IV SCH (11:39)
--- NOTE | 2019-05-27 12:31 | DIS ---
DATE OF ADMISSION: 05/25/2019 DATE OF DISCHARGE: 05/27/2019 DISCHARGE DIAGNOSES: 1. Acute metabolic encephalopathy, multifactorial, resolved. 2. Cardiac arrest as a complication of care, brief with return of spontaneous circulation. 3. Acute kidney injury, resolved. 4. Diabetes mellitus type 2, stable. 5. Hypertension, labile. 6. Intracerebral hematoma in the left frontal distribution. 7. Hyperlipidemia. CONSULTATIONS: 1. Dr. Thomas with Pulmonology Critical Care Service. 2. Dr. Guerrier with Neurology Service. PERTINENT LABORATORY AND X-RAY FINDINGS: Creatinine ranged between 1.07 to 1.19, estimated GFR ranged between 43 to 49. Lactic acid level 1.6, magnesium 1.7. LFTs within normal limits. Troponin I negative x1. Lipase 17. CBC showed a white blood cell count ranged between 8.2 to 11.1, hemoglobin ranged between 10.6 to 11.9. Blood cultures x2 dated 05/24/2019, showed no growth at 48 hours. Urine culture dated 05/24/2019 showed no growth at [address] of the brain without contrast dated 05/24/2019 showed intra-axial hemorrhage in the left frontal lobe distribution with vasogenic edema, similar in appearance to 05/21/2019. Portable chest x-ray dated 05/24/2019 showed nonspecific density in the left lung base. CT of the brain without contrast dated 05/24/2019 showed left frontal intraparenchymal hematoma with similar appearance to previous CT imaging. No new hemorrhage is noted. HOSPITAL COURSE: The patient was admitted to the Critical Care Unit after presenting with altered mental status with associated elevated blood pressure in the context of recent left frontal intraparenchymal hematoma. The patient underwent serial CT imaging of the brain showing stable intra-axial hematoma. The patient was noted with elevated blood pressures in the emergency room and initiated on a Cardene infusion. The patient experienced bradycardia with eventual loss of pulse necessitating a brief episode of CPR for approximately 1 minute. The patient had return of spontaneous circulation in the emergency room and was transferred to the Critical Care for further monitoring. The patient remained essentially asymptomatic under observation without evidence of worsening intracranial process. The patient received general supportive management and transferred to the medical floor for further observation. The patient remained clinically stable, tolerating regular oral intake with stable vital signs. I have examined the patient at the time of discharge and discussed followup instructions. The patient verbalizes understanding and agreement, ready for discharge on 05/27/2019. DISCHARGE MEDICATIONS: 1. Multivitamin 1 tablet p.o. daily. 2. Coreg 6.25 mg p.o. b.i.d. 3. Catapres 0.1 mg p.o. b.i.d. 4. Glipizide 5 mg p.o. daily. 5. Cozaar 25 mg p.o. b.i.d. FOLLOWUP: The patient may follow up with [facility] within 7 days of discharge. CONDITION ON DISCHARGE: Stable. ACTIVITY: Ad-marco a. DIET: ADA. CODE STATUS: Full. DISPOSITION: To home on 05/27/2019. TIME SPENT: Total time preparing and coordinating discharge, 33 minutes. Job ID: [id number]
[2019-05-27 13:12] VITALS: BP 111/66
== END 2019-05-27 11:56 | disposition home or self-care (01) | DRG 304 ==
LOC: ERS 19:19 → CCU 05-25 02:00 → T4-A 05-26 13:44
PROVIDERS: ADMIT Internal Medicine; ATTEND Internal Medicine
PROC: 5A12012 Performance of Cardiac Output, Single, Manual (ICD-10-PCS; principal; 2019-05-25)
DX: I16.1 Hypertensive emergency (principal); I46.9 Cardiac arrest, cause unspecified; G93.41 Metabolic encephalopathy; I62.9 Nontraumatic intracranial hemorrhage, unspecified; N17.9 Acute kidney failure, unspecified; I10 Essential (primary) hypertension; E78.5 Hyperlipidemia, unspecified; E11.649 Type 2 diabetes mellitus with hypoglycemia without coma; R29.717 NIHSS score 17; R40.2362 Coma scale, best motor response, obeys commands, at arrival to emergency department; R40.2142 Coma scale, eyes open, spontaneous, at arrival to emergency department; R40.2252 Coma scale, best verbal response, oriented, at arrival to emergency department; Z90.49 Acquired absence of other specified parts of digestive tract; Z90.710 Acquired absence of both cervix and uterus
CPT/HCPCS: 36415; 36416; 51701; 70450; 71045; 80048; 81003; 82550; 83605; 83690; 83735; 84484; 85007; 85025; 85027; 85610; 85730; 87040; 87086; 92950; 93005; 96361; 96365; 96366; 96375; 99292; A4353; J0461; J7050; S0028

== ENCOUNTER 2019-09-29 11:03 | Inpatient (IN) | payer MEDICAID, OTHER, SELFPAY ==
--- NOTE | 2019-09-29 11:24 | CT ---
CT BRAIN WITHOUT CONTRAST: HISTORY: Level 1 stroke. Left-sided facial weakness COMPARISON: 05/25/2019 FINDINGS: There is been interval resolution of the hemorrhage in the left frontal lobe with residual encephalom alacia. No evidence of acute infarct, hemorrhage, midline shift or abnormal extra-axial fluid collections is seen. The ventricular size is appropriate and the basilar cisterns are patent. The bon y calvarium is intact. The visualized paranasal sinuses and mastoid air cells are well aerated. IMPRESSION: No CT evidence of acute intracranial process. Discussed over the telephone with ER physician Dr. Valentin at 11:21 AM
[2019-09-29 11:46] LABS: #Eosinphils 0.5 thou/uL (0.0-0.7); #Lymphocytes 2.1 thou/uL (1.20-3.40); #Monocytes 0.5 thou/uL (0.11-0.59); #Neutrophils 6.2 thou/uL (1.40-6.50); %Basophils 0.4 % (0.0-1.0); %Eosinophils 5.2 % (0.0-10.0); %Lymphocytes 22.2 % (21.0-51.0); %Monocytes 5.8 % (0.0-10.0); %Neutrophils 66.4 % (42.0-75.0); Hemoglobin 13.2 g/dL (12.0-16.0); Mean Corpuscular Hemoglobin 28.5 pg (27.0-31.0); Mean Corpuscular Volume 86.3 fL (78.0-98.0); Mean Platelet Volume 8.7 fL (7.4-10.4); Platelet Count 243 thou/uL (130-400); RBC Distribution Width 12.1 % (11.5-14.5); Red Blood Cell (RBC) Count 4.65 mill/uL (4.20-5.40); White Blood Cell (WBC) Count 9.3 thou/uL (4.8-10.8)
[2019-09-29 11:54] LABS: INR-International Normal Ratio 0.9; PTT 25.8 sec (22.9-36.1); Prothrombin Time 12.4 sec (12.0-14.7)
--- NOTE | 2019-09-29 12:01 | RAD ---
RADIOGRAPH CHEST 1 VIEW: DATE: 09/29/2019 TIME: 11:57 AM HISTORY: 84-year-old female status post presyncope, altered mental status. Concern for aspiration. COMPARISON: 05/24/2019 FINDINGS: The previously demonstrated small density at left lung base has resolved, and it was probably either mild atelectasis or early infiltrate. There is mild blunting of the lateral costophrenic angles bilaterally, similar to prior study. The visualized lung carranza are currently clear except for focal scar at right mid-lower lung zone. No pneumothorax or pulmonary edema. IMPRESSION: Possible very small bilateral pleural effusions. A lateral view may be useful.
[2019-09-29 12:08] LABS: ALT (SGPT) 15 U/L (8-55); AST (SGOT) 16 U/L (5-34); Albumin 4.1 g/dL (3.4-4.8); Alkaline Phosphatase 118 U/L (40-110); Anion Gap 16 mmol/L (10-20); BUN (Urea Nitrogen) 24 mg/dL (9.8-20.1); Bilirubin, Total 0.3 mg/dL (0.2-1.2); CK (CPK) 36 U/L (29-168); Calc. Creatinine Clearance 0 mL/min (70-130); Carbon Dioxide 18 mmol/L (23-31); Chloride 101 mmol/L (98-107); Estimated GFR-MDRD 39; Globulin 3.4 g/dL (2.4-3.5); Glucose 153 mg/dL (83-110); Potassium 4.5 mmol/L (3.5-5.1); Protein, Total 7.5 g/dL (6.0-8.3); Sodium 130 mmol/L (136-145)
--- NOTE | 2019-09-29 12:50 | CT ---
CTA HEAD WITH CONTRAST: Date: 09/29/2019 Axial tomograms obtained through the head following a cerebral angio protocol with multiplanar recons truction and 3D postprocessing. INDICATION: Level I stroke protocol. Correlation made to CT head without contrast performed this morning which showed no acute abnormality . Volume loss in the left frontal lobe from the previously described hematoma is noted. FINDINGS: The intracranial internal carotid arteries appear patent and symmetric. Mild atherosclerotic change s een at the cavernous ICAs bilaterally without evidence of stenosis. Anterior cerebral arteries are patent and symmetric. Middle cerebral arteries are patent and symmetric. Basilar artery is patent. Posterior cerebral arteries are patent and symmetric. There is no evidence of proximal cerebral artery stenosis or occlusion. IMPRESSION: Unremarkable CTA head. CTA NECK: Axial tomograms obtained following angio protocol with multiplanar reconstruction and 3D postprocessi ng. INDICATION: Stroke protocol. FINDINGS: There is atherosclerotic change with mild stenosis at the origin of the left common carotid at the ar ch. Innominate artery origin is unremarkable. Both common carotid arteries are patent with mild atherosclerotic change. No significant stenosis in either common carotid artery. Atherosclerotic change seen at both bulbs with calcified plaque and soft plaque in both bulbs and pro ximal ICAs. There is a segment of significant stenosis in the proximal left internal carotid artery measuring demetrice roximately 4-5 mm craniocaudal length in the sagittal plane. The degree of luminal stenosis is hemody namically significant, estimated in the 60% range by NASCET criteria. No evidence of hemodynamically significant stenosis in the right internal carotid artery. Both international project manager al carotid arteries are tortuous. The vertebral arteries are patent and symmetric. Review of soft tissues show enlarged heterogeneously enhancing mass with internal calcification invol ving the left lobe of the thyroid which exhibits substernal extension. IMPRESSION: 1. 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 2. 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 This large heterogeneous mass was present on a CT chest from 11/14/2016 and does not appea r significantly changed. Findings relayed to the ER physician at 1144 hours. CODE CR.
[2019-09-29] MEDS ORDERED: Iopamidol-370 76% 500 ML 1 ML ONE (13:31)
[2019-09-29] MEDS ORDERED: hydrALAZINE 20 MG/ML VIAL ONE (13:35)
[2019-09-29] MEDS ORDERED: Aspirin Chewable 81 MG TAB ONE (13:35)
[2019-09-29 13:47] LABS: Bacteria/HPF 3+ HPF (None Seen); Bilirubin Negative (Negative); Blood, Urine 1+ (Negative); Clarity Turbid (Clear); Glucose, Urine (Dipstick) Normal (Negative); Ketone, Urine Negative (Negative); Leukocyte 500 Leu/uL (Negative); Nitrite Negative (Negative); Protein, Urine (Dipstick) 20 mg/dL (Neg-Trace); RBC/HPF 21-50 HPF (0-3); Squamous Epithelial 0-3 HPF (0-3); Transitional Epithelial 0-3 HPF (None Seen); Urobilinogen Normal mg/dL (Less than 2); WBC/HPF Greater than 50 HPF (0-3); pH, Urine 7.5 (5.0-9.0)
[2019-09-29] MEDS ORDERED: Zolpidem Tartrate 5 MG TAB PO PRN (15:25)
[2019-09-29] MEDS ORDERED: Acetaminophen 325 MG TAB PO PRN (15:25)
[2019-09-29] MEDS ORDERED: Dextrose 5% in Water 1,000 ML IV PRN (15:25)
[2019-09-29] MEDS ORDERED: HumaLOG 300 UNITS/3 ML VIAL SC PRN (15:25)
[2019-09-29] MEDS ORDERED: Ondansetron ODT 4 MG TAB PO PRN (15:25)
[2019-09-29] MEDS ORDERED: Dextrose 50% Abboject 50 ML SYRINGE SLOW IVP PRN (15:25)
[2019-09-29] MEDS ORDERED: Sodium Chloride 0.9% 100 ML ONE (15:28)
[2019-09-29] MEDS ORDERED: cefTRIAXone\\ROCEPHIN 1 GM VIAL ONE (15:28)
[2019-09-29 15:49] LABS: Hemoglobin A1c 7.6 % (4.0-6.0)
--- NOTE | 2019-09-29 16:25 | HP ---
PRIMARY CARE PROVIDER: [facility]. HISTORY OF PRESENT ILLNESS: The patient presents with a history of having gotten lightheaded, feeling faint, generalized weakness. She was assisted to the chair. Supposedly, she did not make a much sense for a brief period of time less than a minute. She had no focal weakness. She did have troubles with speech for a brief period of time, which resolved quickly. She had no tonic-clonic activity. No eyes rolled back. She denies any visual defect with the present illness. PAST MEDICAL HISTORY: Pertinent for a hemorrhagic cerebrovascular accident earlier this year, diabetes, hypertension, dyslipidemia. CURRENT MEDICATIONS: 1. Losartan 25 mg twice a day. 2. Coreg 6.25 mg twice a day. 3. Clonidine 0.1 mg oral two times a day p.r.n. 4. Glipizide 5 mg once a day. 5. Multivitamin once a day. ALLERGIES: NO KNOWN DRUG ALLERGIES. PAST SURGICAL HISTORY: Includes a hysterectomy and a cholecystectomy. FAMILY HISTORY: Multiple members with high blood pressure, diabetes. SOCIAL HISTORY: . As best I can tell, full code status. is next of kin. No history of alcohol or tobacco. REVIEW OF SYSTEMS: Review of systems was accomplished with some difficulty. GENERAL: No headaches, fever, chills. EYES: No double vision, blurred vision, flashing lights. EAR, NOSE, AND THROAT: No ear pain or drainage. No nasal bleeding. No trouble swallowing. CARDIAC: No chest pain, orthopnea, or paroxysmal nocturnal dyspnea. RESPIRATIONS: Some mild shortness of breath at times. No wheezing, asthma, or cough. GASTROINTESTINAL: No nausea, vomiting, diarrhea, or constipation. No blood in her stools. No black tarry stools. GENITOURINARY: No pain on urination. No blood in her urine. MUSCULOSKELETAL: No pain or swelling in her legs. NEUROLOGICAL: She has a history of stroke. She does not remember which day, however, it was in May of this year. PSYCHIATRIC: No history of anxiety, depression. SKIN: No bruising, bleeding, or rash. HEME/LYMPH: No tender nodules in her axilla, inguinal, cervical area. PHYSICAL EXAMINATION: GENERAL: She is Amharic-speaking only, cooperative with the video commercial driver, it was still difficult. VITAL SIGNS: Her blood pressure was 227/69 in the emergency room, pulse 79, respirations 18, O2 saturation 98, temperature 94. HEAD, EYES, EARS, NOSE, AND THROAT: Revealed pupils equal, round. Extraocular movements are intact. Sclerae are white. Tympanic membranes clear. Nose is clear. Mouth is clear. NECK: No jugular venous distention, adenopathy, or thyromegaly. CHEST: Clear to auscultation and percussion. HEART: Had a regular rate and rhythm. First and second heart sounds are clear. There are no murmurs or gallops. ABDOMEN: Soft. Bowel sounds are normal. There is no hepatosplenomegaly. No mass. No rebound. EXTREMITIES: Reveal no cyanosis, clubbing, or edema. PULSES: Carotid, radial, femoral, and dorsalis pedis pulses intact. SKIN: Warm and dry without bruises or rash. HEME/LYMPH: No tender or swollen lymph nodes in axilla, inguinal, or cervical area. NEUROLOGICAL: Cranial nerves 2 through 12 are intact. Deep tendon reflexes symmetric. Interestingly, both toes were upgoing with plantar stimulation. DIAGNOSTIC DATA: Multiple tests have been done. EKG, regular sinus rhythm with no acute change. There is some mild ST depression clinically insignificant, personally reviewed. Chest x-ray revealed no cardiomegaly, CHF, infiltrate, etc. Personally reviewed. CT [place] revealed no remarkable findings. Brain CT, no acute intracranial process. There is some residual encephalomalacia in the left frontal lobe from a previous hemorrhage. Sodium was 130, potassium 4.5, BUN 24, creatinine 1.3. I have checked old admissions, this is fairly consistent with her old ones. Blood sugar 153. Liver function tests normal except for an alkaline phosphatase of 118. Urine shows elevated white cells and red cells. CBC was unremarkable. ADMITTING DIAGNOSES: 1. Presyncope versus possible seizure disorder. 2. History of previous intracranial hemorrhage with residual encephalomalacia. 3. Diabetes mellitus type 2 with chronic kidney disease stage 3. 4. Hypertension. 5. Hyponatremia. PLAN: 1. The patient will be placed in the hospital on stroke unit and monitored. She was given aspirin in the emergency room, but I am reluctant to continue aspirin in a patient with an intracranial hemorrhage just four months ago. This does not appear to be a TIA to me. 2. Her blood pressure is significantly elevated. I do not know if she has been taking her home medicines or not. I will restart her home medicines and put some p.r.n. medicines, and previous time she was here, she was started on Cardene for elevated blood pressure, had a hypotensive episode and required CPR and I am reluctant to use aggressive care in this patient without markedly elevated diastolic pressure also. Prolactin has been ordered as it is potentially possible that this was some form of nonclassical seizure. Having obtained the information I need, I will further review her for what needs to be done. Job ID: [id number]
[2019-09-29] MEDS: Losartan 25 MG TAB PO SCH (22:35)
[2019-09-29] MEDS: Carvedilol 6.25 MG TAB PO SCH (22:35)
[2019-09-30 02:47] VITALS: BMI 17.9
[2019-09-30 05:15] LABS: #Eosinphils 0.3 thou/uL (0.0-0.7); #Lymphocytes 1.9 thou/uL (1.20-3.40); #Monocytes 0.5 thou/uL (0.11-0.59); #Neutrophils 5.2 thou/uL (1.40-6.50); %Basophils 0.4 % (0.0-1.0); %Eosinophils 3.8 % (0.0-10.0); %Lymphocytes 23.5 % (21.0-51.0); %Monocytes 6.6 % (0.0-10.0); %Neutrophils 65.6 % (42.0-75.0); Hemoglobin 12.9 g/dL (12.0-16.0); Mean Corpuscular HGB CONC 32.8 g/dL (32.0-36.0); Mean Corpuscular Volume 85.3 fL (78.0-98.0); Mean Platelet Volume 8.6 fL (7.4-10.4); Platelet Count 248 thou/uL (130-400); RBC Distribution Width 12.2 % (11.5-14.5); Red Blood Cell (RBC) Count 4.59 mill/uL (4.20-5.40)
[2019-09-30 05:50] LABS: Anion Gap 14 mmol/L (10-20); BUN (Urea Nitrogen) 24 mg/dL (9.8-20.1); Calc. Creatinine Clearance 21 mL/min (70-130); Carbon Dioxide 23 mmol/L (23-31); Cardiac Risk 5.3 (Less than 4.5); Chloride 104 mmol/L (98-107); Cholesterol 163 mg/dl (< 200 Desired); Estimated GFR-MDRD 39; Glucose 98 mg/dL (83-110); HDL Cholesterol 31 mg/dL (>60 Neg Risk); LDL Cholesterol, Calculated 106 mg/dL; Potassium 3.9 mmol/L (3.5-5.1); Sodium 137 mmol/L (136-145); Triglycerides 132 mg/dL (Less than 150)
[2019-09-30] MEDS: Carvedilol 6.25 MG TAB PO SCH ×2 (08:30→17:48)
[2019-09-30] MEDS: Losartan 25 MG TAB PO SCH ×2 (08:30→20:52)
[2019-09-30] MEDS: glipiZIDE 5 MG TAB PO SCH (08:30)
[2019-09-30] MEDS ORDERED: Aspirin 325 mg Enteric Coated Tablet PO SCH (09:00)
[2019-09-30] MEDS ORDERED: Lorazepam 0.5 MG TAB PO SCH (12:15)
--- NOTE | 2019-09-30 12:52 | CON ---
NEUROLOGY CONSULTATION DATE OF CONSULTATION: 09/30/2019 REASON FOR CONSULTATION: Rule out stroke. HISTORY OF PRESENT ILLNESS: Ms. Aguillon is an 84-year-old female with history significant for hypertension and diabetes, presented to the emergency room with lightheadedness, presyncopal feeling, and generalized weakness. The patient is unable to provide a good history, which was tried with the help of a political aide. According to her, she was feeling weak and was unable to walk. She denies any focal weakness. She does have problems with speech, according to documentation, which resolved on its own. The patient denies focal nausea, vomiting, headache, focal paresthesias, focal weakness, blurred vision, loss of vision or loss of consciousness associated with the episode. She was presented to the emergency room with a presyncopal episode with generalized weakness. There is a concern about seizure versus TIAs, so she was admitted for further evaluation. REVIEW OF SYSTEMS: All 10 systems were reviewed and were negative except the pertinent positives and negative mentioned in the HPI. PAST MEDICAL HISTORY: Hemorrhagic CVA, diabetes, hypertension, and dyslipidemia. PAST SURGICAL HISTORY: Hysterectomy and cholecystectomy. FAMILY HISTORY: Significant for hypertension and diabetes. SOCIAL HISTORY: . Denies smoking, alcohol, or illegal drug use. ALLERGIES: NKDA HOME MEDICATIONS: 1. Losartan 25 mg twice daily. 2. Coreg 6.25 mg twice daily. 3. Clonidine 0.1 mg two times a day p.r.n. 4. Glipizide 5 mg once daily. 5. Multivitamin once daily. - Objective Vital Signs & Weight: Vital Signs (12 hours) Temp Pulse Pulse Pulse Resp BP BP 09/30/19 11:27 97.8 F 75 16 09/30/19 09:40 80 79 166/73 H 09/30/19 08:30 172/66 H 09/30/19 07:35 97.8 F 78 16 09/30/19 03:10 98.2 F 78 20 BP BP BP Pulse Ox 09/30/19 11:27 180/68 H 98 09/30/19 09:40 184/93 H 09/30/19 08:30 09/30/19 07:35 138/72 96 09/30/19 03:10 124/60 94 L Weight Admit Weight 92 lb Weight 92 lb Additional Labs: Accuchecks 09/30/19 09/29/19 10:41 11:30 POC Glucose 269 H 154 H Active Medications Generic Name Dose Route Start Last Admin Trade Name Freq PRN Reason Stop Dose Admin Carvedilol 6.25 mg 09/29/19 17:00 09/30/19 08:30 Coreg PO 6.25 mg BID-WM JOHNNY Administration Glipizide 5 mg 09/30/19 07:30 09/30/19 08:30 Glucotrol PO 5 mg DAILY-AC JOHNNY Administration Insulin Human Lispro 0 units 09/29/19 15:25 09/30/19 12:14 Humalog SC 6 unit .MODERATE SLIDING SC PRN Administration Moderate Correctional Scale Losartan Potassium 25 mg 09/29/19 21:00 09/30/19 08:30 Cozaar PO 25 mg BID JOHNNY Administration - Exam General Appearance: awake alert Neck: no JVD Heart: RRR, no murmur Respiratory: CTAB, no wheezes Gastrointestinal: soft, non-tender, non-distended, normal bowel sounds Extremities: no edema Neurological: Mental status, the patient is alert and oriented to person, place, and time. Cranial nerves 2 through 12 intact. Motor, muscle tone and bulk are normal. Strength 5/5 bilaterally. Sensory intact. Gait deferred due to the patient's safety reasons. DATA REVIEWED: I reviewed the head CT which did not reveal any acute intracranial process. There is residual encephalomalacia in the left frontal lobe from previous hemorrhage. Chest x-ray was unremarkable. CT angiogram of the [place] did not reveal any remarkable findings. A/P (1) Syncopal episodes Code(s): R55 - SYNCOPE AND COLLAPSE Status: Acute Qualifiers: Syncope type: unspecified Qualified Code(s): R55 - Syncope and collapse (2) Hyponatremia Code(s): E87.1 - HYPO-OSMOLALITY AND HYPONATREMIA Status: Acute (3) HLD (hyperlipidemia) Code(s): E78.5 - HYPERLIPIDEMIA, UNSPECIFIED Status: Acute Qualifiers: Hyperlipidemia type: unspecified Qualified Code(s): E78.5 - Hyperlipidemia , unspecified (4) DM2 (diabetes mellitus, type 2) Status: Chronic Qualifiers: Diabetes mellitus long wall shear operator insulin use: without retirement use Diabetes mellitus complication status: with kidney complications Diabetes mellitus complication detail: with chronic kidney disease Chronic kidney disease stage : stage 3 (moderate) Qualified Code(s): E11.22 - Type 2 diabetes mellitus with diabetic chronic kidney disease; N18.3 - Chronic kidney disease, stage 3 ( moderate) (5) HTN (hypertension) Code(s): I10 - ESSENTIAL (PRIMARY) HYPERTENSION Status: Chronic Qualifiers: Hypertension type: essential hypertension . ASSESSMENT AND PLAN: Ms. Radames Aguillon was admitted for episode of generalized weakness with altered mental status and speech problems, which resolved on its own. The differential diagnosis includes transient ischemic attack versus syncope versus seizures. She has no history of seizure disorder, but past stroke may become an epileptogenic focus. Recommend EEG to rule out seizure-like activity. Recommend MRI Brain to rule out acute intracranial process. Start aspirin and consider statin for secondary stroke prevention. PT/OT/Speech. Neuro checks every 4 hours . Telemetry . Monitor blood pressure and blood glucose. Check hemoglobin A1c, fasting lipid panel, and TSH. Recommend syncope work up including echo. Continue home medications. Continue medical management per primary team. Plan explained to the patient with the help of a political aide. Job ID: [id number] [id number]
--- NOTE | 2019-09-30 13:23 | PDOC.HOSPP ---
- Subjective Encounter Date: 09/30/19 Encounter Time: 13:20 Subjective: alert, minimal generaliweakness, sodizziness on arising - Objective Vital Signs & Weight: Vital Signs (12 hours) Temp Pulse Pulse Pulse Resp BP BP 09/30/19 11:27 97.8 F 75 16 09/30/19 09:40 80 79 166/73 H 09/30/19 08:30 172/66 H 09/30/19 07:35 97.8 F 78 16 09/30/19 03:10 98.2 F 78 20 BP BP BP Pulse Ox 09/30/19 11:27 180/68 H 98 09/30/19 09:40 184/93 H 09/30/19 08:30 09/30/19 07:35 138/72 96 09/30/19 03:10 124/60 94 L Weight Admit Weight 92 lb Weight 92 lb Result Diagrams: 09/30/19 04:57 09/30/19 04:57 Additional Labs: Accuchecks 09/30/19 09/29/19 10:41 11:30 POC Glucose 269 H 154 H Hospitalist ROS - Medication Medications: Active Medications Generic Name Dose Route Start Last Admin Trade Name Freq PRN Reason Stop Dose Admin Carvedilol 6.25 mg 09/29/19 17:00 09/30/19 08:30 Coreg PO 6.25 mg BID-WM JOHNNY Administration Glipizide 5 mg 09/30/19 07:30 09/30/19 08:30 Glucotrol PO 5 mg DAILY-AC JOHNNY Administration Insulin Human Lispro 0 units 09/29/19 15:25 09/30/19 12:14 Humalog SC 6 unit .MODERATE SLIDING SC PRN Administration Moderate Correctional Scale Losartan Potassium 25 mg 09/29/19 21:00 09/30/19 08:30 Cozaar PO 25 mg BID JOHNNY Administration - Exam General Appearance: awake alert Neck: no JVD Heart: RRR, no murmur Respiratory: CTAB, no wheezes Gastrointestinal: soft, non-tender, non-distended, normal bowel sounds Extremities: no edema Neurological: cranial nerve grossly intact, no focal deficits Hosp A/P (1) Syncopal episodes Code(s): R55 - SYNCOPE AND COLLAPSE Status: Acute Qualifiers: Syncope type: unspecified Qualified Code(s): R55 - Syncope and collapse (2) Hyponatremia Code(s): E87.1 - HYPO-OSMOLALITY AND HYPONATREMIA Status: Acute (3) HLD (hyperlipidemia) Code(s): E78.5 - HYPERLIPIDEMIA, UNSPECIFIED Status: Acute Qualifiers: Hyperlipidemia type: unspecified Qualified Code(s): E78.5 - Hyperlipidemia , unspecified (4) DM2 (diabetes mellitus, type 2) Status: Chronic Qualifiers: Diabetes mellitus fci insulin use: without fci use Diabetes mellitus complication status: with kidney complications Diabetes mellitus complication detail: with chronic kidney disease Chronic kidney disease stage : stage 3 (moderate) Qualified Code(s): E11.22 - Type 2 diabetes mellitus with diabetic chronic kidney disease; N18.3 - Chronic kidney disease, stage 3 ( moderate) (5) HTN (hypertension) Code(s): I10 - ESSENTIAL (PRIMARY) HYPERTENSION Status: Chronic Qualifiers: Hypertension type: essential hypertension - Plan appreciate Neuro input. DDx includes seizures, TIA ASA, statin MRI brain, EEG pending
[2019-09-30] MEDS ORDERED: Magnevist 469MG/ML 20 ML VIAL ONE (14:19)
--- NOTE | 2019-09-30 16:29 | MRI ---
MRI BRAIN WITH AND WITHOUT CONTRAST: DATE: 09/30/2019 HISTORY: 84-year-old female with recent left facial weakness. Rule out acute stroke. COMPARISON: 05/20/2019 TECHNIQUE: Multiplanar, multisequence MRI of the brain performed pre- and post-IV injection of gadolinium based contrast agent. FINDINGS: The previously demonstrated large left frontal lobe intra-axial acute hematoma has evolved into a mod erate size region of encephalomalacia and gliosis, with broad hemosiderin stain. Within this, there is an approximately 2.2 x 0.9 x 1.4 cm patchy region of intra-axial enhancement. The previously demon strated mass effect and mild subfalcine herniation, have resolved. No new, acute intra-axial or extra-axial hemorrhage. No mass effect, midline shift, or extra-axial fl uid collection. Mild chronic ischemic white matter changes in the cerebrum bilaterally. 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 On the diffusion-weighted images, there are 2 foci of hyperintensity. One is approximately 8 to 10 mm in the right anterior upper divina, and the other is a thin 2 x 6 mm focus of mildly increased signal intensity. There was previously artifact in this location on the prior MRI, and one or both of these could currently represent artifacts. However, there is a small possibility that one of these could be an acute brainstem lacunar infarction. There is extensive artifact over the divina on the ADC map. No associated signal abnormality on T2 WI or FLAIR in this location. No abnormal enhancement in this location. IMPRESSION: 1) 2 small foci of hyperintense signal in the divina. These could either represent artifact or acute la cunar infarctions of the divina. Recommend follow-up noncontrast MRI of the brain in one to 3 weeks. 2) sequela of remote left frontal intra-axial hematoma. 3) within that region, there is a an approximately 2 cm patchy region of intra-axial enhancement, whi ch could represent primary brain neoplasm which may have been the source of the original hemorrhage. The other possibility is enhancing scar tissue, the appearance of which would be unusual. Recommend neurosurgical consultation, and serial follow-up MRIs of the brain with and without contrast, beginning in 3 months. 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
--- NOTE | 2019-09-30 17:23 | PDOC.EVN ---
Event Note - Event Note Event Note: MRI grossly abnormal. will need 2 more overnites. status inpatient
[2019-09-30] MEDS: cloNIDine 0.1 MG TAB PO PRN (20:52)
[2019-09-30] MEDS: Atorvastatin Calcium 40 MG TAB PO SCH (20:52)
--- NOTE | 2019-10-01 08:12 | PDOC.HOSPP ---
- Subjective Encounter Date: 10/01/19 Encounter Time: 08:07 Subjective: doimg well, no dizziness , etc - Objective Vital Signs & Weight: Vital Signs (12 hours) Temp Pulse Resp BP BP BP Pulse Ox 10/01/19 07:33 97.9 F 66 15 127/59 L 99 10/01/19 07:20 99 10/01/19 04:29 97.9 F 74 18 144/78 H 97 10/01/19 00:29 98.5 F 79 18 133/64 99 09/30/19 20:52 208/90 H Weight Admit Weight 92 lb Weight 92 lb I&O: 09/30/19 10/01/19 10/02/19 06:59 06:59 06:59 Intake Total 120 Balance 120 Result Diagrams: 09/30/19 04:57 09/30/19 04:57 Additional Labs: Accuchecks 09/30/19 10:41 POC Glucose 269 H Hospitalist ROS - Medication Medications: Active Medications Generic Name Dose Route Start Last Admin Trade Name Sebasq PRN Reason Stop Dose Admin Atorvastatin Calcium 40 mg 09/30/19 21:00 09/30/19 20:52 Lipitor PO 40 mg HS JOHNNY Administration Carvedilol 6.25 mg 09/29/19 17:00 09/30/19 17:48 Coreg PO 6.25 mg BID-WM JOHNNY Administration Clonidine 0.1 mg 09/29/19 15:41 09/30/19 20:52 Catapres PO 0.1 mg Q4H PRN Administration SBP > 180 Glipizide 5 mg 09/30/19 07:30 09/30/19 08:30 Glucotrol PO 5 mg DAILY-AC JOHNNY Administration Insulin Human Lispro 0 units 09/29/19 15:25 09/30/19 12:14 Humalog SC 6 unit .MODERATE SLIDING SC PRN Administration Moderate Correctional Scale Losartan Potassium 25 mg 09/29/19 21:00 09/30/19 20:52 Cozaar PO 25 mg BID JOHNNY Administration - Exam General Appearance: awake alert Neck: JVD Heart: RRR, no murmur Respiratory: CTAB Gastrointestinal: soft, normal bowel sounds Extremities: no edema Neurological: cranial nerve grossly intact, no focal deficits Hosp A/P (1) Syncopal episodes Code(s): R55 - SYNCOPE AND COLLAPSE Status: Acute Qualifiers: Syncope type: unspecified Qualified Code(s): R55 - Syncope and collapse (2) Hyponatremia Code(s): E87.1 - HYPO-OSMOLALITY AND HYPONATREMIA Status: Acute (3) HLD (hyperlipidemia) Code(s): E78.5 - HYPERLIPIDEMIA, UNSPECIFIED Status: Acute Qualifiers: Hyperlipidemia type: unspecified Qualified Code(s): E78.5 - Hyperlipidemia , unspecified (4) DM2 (diabetes mellitus, type 2) Status: Chronic Qualifiers: Diabetes mellitus terminal computer operator insulin use: without terminal computer operator use Diabetes mellitus complication status: with kidney complications Diabetes mellitus complication detail: with chronic kidney disease Chronic kidney disease stage : stage 3 (moderate) Qualified Code(s): E11.22 - Type 2 diabetes mellitus with diabetic chronic kidney disease; N18.3 - Chronic kidney disease, stage 3 ( moderate) (5) HTN (hypertension) Code(s): I10 - ESSENTIAL (PRIMARY) HYPERTENSION Status: Chronic Qualifiers: Hypertension type: essential hypertension - Plan DVT proph w/lovenox, dc IVF . DDx includes seizures, TIA ASA, statin MRI brain no significant finding, EEG pending await Neuro opinion
[2019-10-01] MEDS ORDERED: Iopamidol-370 76% 500 ML 1 ML ONE (08:51)
[2019-10-01] MEDS: Aspirin 325 MG TAB PO SCH (09:18)
[2019-10-01] MEDS: Losartan 25 MG TAB PO SCH ×2 (09:18→21:42)
[2019-10-01] MEDS: Carvedilol 6.25 MG TAB PO SCH ×2 (09:18→17:04)
[2019-10-01] MEDS: glipiZIDE 5 MG TAB PO SCH (09:18)
--- NOTE | 2019-10-01 11:12 | EEG ---
DATE OF SERVICE: 09/30/2019 ATTENDING PHYSICIAN: Laura Newell MD This EEG was performed using 24-channel [employer] video digital EEG machine with 24-disk electrodes. This was an extended 2 hours 5 minutes of inpatient video EEG recording. Digital analysis of the EEG was done for spike and seizure detection, which revealed no abnormalities. BACKGROUND: There is a nonsustained posterior background rhythm of 8 to 8.5 Hz. Minimal reactivity is seen with eye opening and closure. HYPERVENTILATION: Not performed. PHOTIC STIMULATION: No significant response seen with photic stimulation. SLEEP: Drowsiness and sleep are observed. EEG DIAGNOSIS: 1. Occasional irregular theta activity seen during the recording. 2. Nonsustained posterior background rhythm. CLINICAL INTERPRETATION: This EEG is consistent with mild generalized nonspecific cerebral dysfunction. Job ID: [id number]
--- NOTE | 2019-10-01 13:47 | PDOC.HOSPP ---
- Subjective Encounter Date: 10/01/19 Subjective: NEUROLOGY PROGRESS NOTE PPatient alert with no issues overnight. MRI brain grossly abnormal. - Objective Vital Signs & Weight: Vital Signs (12 hours) Temp Pulse Resp BP BP Pulse Ox 10/01/19 11:11 97.9 F 66 15 132/59 L 98 10/01/19 09:18 127/59 L 10/01/19 07:33 97.9 F 66 15 127/59 L 99 10/01/19 07:20 99 10/01/19 04:29 97.9 F 74 18 144/78 H 97 Weight Admit Weight 92 lb Weight 92 lb I&O: 09/30/19 10/01/19 10/02/19 06:59 06:59 06:59 Intake Total 120 600 Balance 120 600 Result Diagrams: 09/30/19 04:57 09/30/19 04:57 Radiology Reviewed by me: Yes EKG Reviewed by me: Yes Hospitalist ROS - Review of Systems Constitutional: denies: fever, chills, sweats, weakness, malaise, other Eyes: denies: pain, vision change, conjunctivae inflammation, eyelid inflammation, redness, other ENT: denies: ear pain, ear discharge, nose pain, nose discharge, nose congestion , mouth pain, mouth swelling, throat pain, throat swelling, other Respiratory: denies: cough, dry, shortness of breath, hemoptysis, SOB with excertion, pleuritic pain, sputum, wheezing, other Cardiovascular: reports: light headedness. denies: chest pain, palpitations, orthopnea, paroxysmal noc. dyspnea, edema, other Gastrointestinal: denies: nausea, vomiting, abdominal pain, diarrhea, constipation, melena, hematochezia, other Genitourinary: denies: dysuria, frequency, incontinence, hematuria, retention, other Musculoskeletal: denies: neck pain, shoulder pain, arm pain, back pain, hand pain, leg pain, foot pain, other Neurological: denies: weakness, numbness, incoordination, change in speech, confusion, seizures, other - Medication Medications: Active Medications Generic Name Dose Route Start Last Admin Trade Name Freq PRN Reason Stop Dose Admin Aspirin 325 mg 10/01/19 09:00 10/01/19 09:18 Aspirin PO 325 mg DAILY JOHNNY Administration Atorvastatin Calcium 40 mg 09/30/19 21:00 09/30/19 20:52 Lipitor PO 40 mg HS OJHNNY Administration Carvedilol 6.25 mg 09/29/19 17:00 10/01/19 09:18 Coreg PO 6.25 mg BID-WM JOHNNY Administration Clonidine 0.1 mg 09/29/19 15:41 09/30/19 20:52 Catapres PO 0.1 mg Q4H PRN Administration SBP > 180 Glipizide 5 mg 09/30/19 07:30 10/01/19 09:18 Glucotrol PO 5 mg DAILY-AC JOHNNY Administration Insulin Human Lispro 0 units 09/29/19 15:25 09/30/19 12:14 Humalog SC 6 unit .MODERATE SLIDING SC PRN Administration Moderate Correctional Scale Losartan Potassium 25 mg 09/29/19 21:00 10/01/19 09:18 Cozaar PO 25 mg BID JOHNNY Administration - Exam General Appearance: awake alert Eye: PERRL ENT: normocephalic atraumatic Neck: supple Heart: RRR Respiratory: CTAB Gastrointestinal: soft Extremities: no cyanosis Skin: normal turgor Neurological: no new deficit Psychiatric: normal affect, normal behavior, oriented to person, oriented to place Hosp A/P (1) CVA (cerebral vascular accident) Code(s): I63.9 - CEREBRAL INFARCTION, UNSPECIFIED Status: Acute Plan: 84 year old female with generalized weakness and presyncopal feeling. MRI Brain reviewed and was consistent with 2 acute lacunar infarcts in the divina. Permissive BP control. Recommend statin for secondary stroke prevention. CTA head negative for hemodynamically significant stenosis. CTA Neck showed left ICA stenosis. CV surgery on board. 2 D Echo showed LVEF 60-65%. No thrombus or PFO. PT/OT/Speech (2) Left frontal lobe lesion Code(s): G93.9 - DISORDER OF BRAIN, UNSPECIFIED Status: Acute Plan: MRI also showed left frontal hematoma with lesion suspicious foer neoplasm. Neurosurgery consult ordered. (3) ICAO (internal carotid artery occlusion) Code(s): I65.29 - OCCLUSION AND STENOSIS OF UNSPECIFIED CAROTID ARTERY Status : Acute Plan: CTA neck showed Left ICA stenosis. CV surgery on board. (4) HLD (hyperlipidemia) Code(s): E78.5 - HYPERLIPIDEMIA, UNSPECIFIED Status: Acute Qualifiers: Hyperlipidemia type: unspecified Qualified Code(s): E78.5 - Hyperlipidemia , unspecified Plan: Recommend statin for secondary stroke prevention. (5) HTN (hypertension) Code(s): I10 - ESSENTIAL (PRIMARY) HYPERTENSION Status: Chronic Qualifiers: Hypertension type: essential hypertension Plan: Permissive BP control at this time. - Plan PT/OT, speech therapy, DVT proph w/SCDs
--- NOTE | 2019-10-01 17:24 | PDOC.EVN ---
Event Note - Event Note Event Note: [facility] and [facility] consults ordered by Dr Newell
--- NOTE | 2019-10-01 17:33 | CT ---
EXAM: CHEST CT WITH CONTRAST ABDOMEN CT WITH CONTRAST PELVIC CT WITH CONTRAST: 10/01/19 COMPARISON: Abdomen and pelvic CT 11/12/16. HISTORY: Evaluate for metastatic disease. FINDINGS: CHEST CT: Incompletely evaluated heterogeneous thyroid gland. Left thyroid lobe demonstrates bulky calcificatio n. Left thyroid lobe measures at least 4.7 x 3.8 cm. Dedicated thyroid ultrasound is recommended for possible fine needle aspiration. MEDIASTINUM: No mass, lymphadenopathy or hematoma. HEART: Normal heart size. No significant pericardial fluid. AXILLA: No lymphadenopathy. TRACHEA AND CENTRAL BRONCHI: Patent. PLEURAL SPACES: No pleural effusion. PNEMOTHORAX: None. RIGHT LUNG: No masses or consolidation. Patchy ground glass opacities are nonspecific. No suspicious masses, nodu les or consolidation. LEFT LUNG: Patchy ground glass opacities are nonspecific. There is scarring and atelectasis in the left lower lo be. There does appear to be a nodular density in the left lower lobe, measuring 0.8 x 1.0 cm. Nodular density does have a solid appearance. Correlation made with CT from 11/12/16 demonstrates this nodular density is unchanged. Aorta has a normal caliber. There is atherosclerosis with short segment mild narrowing. Surgically absent gallbladder with resultant dilatation of the common bile duct, unchanged. There is also central intrahepatic biliary dilatation, unchanged. Spleen, pancreas, and left adrenal gland have normal attenuation. There is a fat containing lesion in the left adrenal gland, similar to the previous examination compatible with a 1.5 [address] There are no enhancing masses in the liver. Redemonstration of a simple cyst in the right renal cortex measuring 6.0 x 6.8 cm. Dense focus in the upper pole of the right kidney, unchanged measuring 2.5 x 2.4 cm, previously measuring 2.8 x 2.8 cm. Currently, the lesion has attenuation coefficient of 55 Hounsfield units, previously have attenuatio n coefficient of 35 Hounsfield units. A complex renal cyst is favored. There is symmetric enhancement of the kidneys. Bilaterally, no obstructive uropathy. There is a mildly enlarged gastrohepatic lymph node measuring 0.9 x 0.6 cm. No retrocrural or peripor robinson lymphadenopathy. No mesenteric mass, lymphadenopathy, free air or free fluid. Gastric mucosa, duodenum, and multiple normal caliber small bowel loops are identified. Normal ileoce yusra junction. Normal caliber truncated appendix is suggested. Scattered fecal material in a nondisten ded, nondilated colon. Diverticulosis, without evidence of diverticulitis. PELVIC CT: Surgically absent uterus. No pelvic mass, lymphadenopathy, free air or free fluid. No lytic or blastic lesions in the osseous structures. IMPRESSION: 1. Enlarged heterogeneous thyroid gland. Thyroid ultrasound is recommended. 2. Right adrenal fat containing lesion compatible with adrenal adenoma. 3. Simple and complex cyst associated with the right kidney. 4. Nonspecific mildly enlarged gastrohepatic lymph node. 5. Stable no rule in the left lower lobe. POS: PPP
[2019-10-01] MEDS: Atorvastatin Calcium 40 MG TAB PO SCH (21:42)
[2019-10-02] MEDS: Aspirin 325 MG TAB PO SCH (08:53)
[2019-10-02] MEDS: glipiZIDE 5 MG TAB PO SCH (08:53)
[2019-10-02] MEDS: Carvedilol 6.25 MG TAB PO SCH ×2 (08:53→16:45)
[2019-10-02] MEDS: Losartan 25 MG TAB PO SCH ×2 (08:56→21:03)
[2019-10-02] MEDS: cloNIDine 0.1 MG TAB PO PRN (11:17)
--- NOTE | 2019-10-02 11:45 | PDOC.HOSPP ---
- Subjective Encounter Date: 10/02/19 Encounter Time: 10:45 Subjective: no c/o weakness or sob or palp feels better - Objective Vital Signs & Weight: Vital Signs (12 hours) Temp Pulse Resp BP BP BP Pulse Ox 10/02/19 11:17 195/75 H 10/02/19 11:10 98.4 F 66 17 213/106 H 98 10/02/19 08:53 182/66 H 10/02/19 07:30 97.6 F 70 20 160/76 H 95 10/02/19 04:00 98.4 F 74 18 177/71 H 96 10/02/19 00:00 98.5 F 68 21 H 166/79 H 96 Weight Admit Weight 92 lb Weight 92 lb I&O: 10/01/19 10/02/19 10/03/19 06:59 06:59 06:59 Intake Total 120 900 Balance 120 900 Result Diagrams: 09/30/19 04:57 09/30/19 04:57 Hospitalist ROS - Medication Medications: Active Medications Generic Name Dose Route Start Last Admin Trade Name Freq PRN Reason Stop Dose Admin Aspirin 325 mg 10/01/19 09:00 10/02/19 08:53 Aspirin PO 325 mg DAILY JOHNNY Administration Atorvastatin Calcium 40 mg 09/30/19 21:00 10/01/19 21:42 Lipitor PO 40 mg HS JOHNNY Administration Carvedilol 6.25 mg 09/29/19 17:00 10/02/19 08:53 Coreg PO 6.25 mg BID-WM JOHNNY Administration Clonidine 0.1 mg 09/29/19 15:41 10/02/19 11:17 Catapres PO 0.1 mg Q4H PRN Administration SBP > 180 Glipizide 5 mg 09/30/19 07:30 10/02/19 08:53 Glucotrol PO 5 mg DAILY-AC JOHNNY Administration Insulin Human Lispro 0 units 09/29/19 15:25 09/30/19 12:14 Humalog SC 6 unit .MODERATE SLIDING SC PRN Administration Moderate Correctional Scale Losartan Potassium 25 mg 09/29/19 21:00 10/02/19 08:56 Cozaar PO 25 mg BID JOHNNY Administration - Exam General Appearance: awake alert Eye: PERRL, anicteric sclera ENT: no oropharyngeal lesions, moist mucosa Neck: supple, no JVD Heart: RRR, no murmur Respiratory: no wheezes, no rales Gastrointestinal: soft, non-tender, non-distended, normal bowel sounds Extremities: no cyanosis, no edema Neurological: cranial nerve grossly intact, no focal deficits Psychiatric: normal affect, A&O x 3 Hosp A/P (1) Left frontal lobe lesion Code(s): G93.9 - DISORDER OF BRAIN, UNSPECIFIED Status: Acute (2) Syncopal episodes Code(s): R55 - SYNCOPE AND COLLAPSE Status: Acute Qualifiers: Syncope type: unspecified Qualified Code(s): R55 - Syncope and collapse (3) HLD (hyperlipidemia) Code(s): E78.5 - HYPERLIPIDEMIA, UNSPECIFIED Status: Chronic Qualifiers: Hyperlipidemia type: unspecified Qualified Code(s): E78.5 - Hyperlipidemia , unspecified (4) DM2 (diabetes mellitus, type 2) Status: Chronic Qualifiers: Diabetes mellitus correction insulin use: without director long term care use Diabetes mellitus complication status: with kidney complications Diabetes mellitus complication detail: with chronic kidney disease Chronic kidney disease stage : stage 3 (moderate) Qualified Code(s): E11.22 - Type 2 diabetes mellitus with diabetic chronic kidney disease; N18.3 - Chronic kidney disease, stage 3 ( moderate) (5) HTN (hypertension) Code(s): I10 - ESSENTIAL (PRIMARY) HYPERTENSION Status: Chronic Qualifiers: Hypertension type: essential hypertension (6) Carotid artery disease Code(s): I77.9 - DISORDER OF ARTERIES AND ARTERIOLES, UNSPECIFIED Status: Chronic Qualifiers: Carotid artery disease type: stenosis Laterality: left Qualified Code(s) : I65.22 - Occlusion and stenosis of left carotid artery - Plan await neurosurgery opinion reg left frontal lobe mass with prior bleed continue asp, lipitor, coreg, glipizide and cozaar dc plan per nsx and cts advice hemo/neurostable to amb as tolerated with PT
--- NOTE | 2019-10-02 12:32 | PRG ---
DATE OF SERVICE: 10/02/2019 This is a 30-minute initial visit note, in which 30 minutes were spent reviewing the imaging, exam of the patient, formulation of plan. Ms. Aguillon is an 84-year-old woman who had been admitted for left frontal hemorrhage in the past. This occurred again compared to the last MRI, however, it enhances now and this is not hyperintense on T1 without contrast. As such, there was concern that there may be an underlying lesion. CT angiogram is negative for vascular abnormality. This morning on exam, she is in a chair. She is Beninese speaking only and I do not have an mail sorter present at that time, so it is very difficult to get an accurate exam, although she appears to be sitting in a bedside chair with no apparent complaints. Neurologically, she appears to be intact on neurologist exam. I would recommend a repeat MRI of the brain without and with contrast in 6 weeks. This may just be laminar necrosis that is enhancing that may resolve. I would not recommend any brain operation here such as biopsy. She has a very large thyroid mass. It may need fine-needle aspirate. Job ID: [id number]
--- NOTE | 2019-10-02 12:50 | PDOC.HOSPP ---
- Subjective Encounter Date: 10/02/19 Subjective: NEUROLOGY PROGRESS NOTE PPatient alert with no issues overnight. MRI brain grossly abnormal. Neurosurgery on board. - Objective Vital Signs & Weight: Vital Signs (12 hours) Temp Pulse Resp BP BP BP Pulse Ox 10/02/19 11:17 195/75 H 10/02/19 11:10 98.4 F 66 17 213/106 H 98 10/02/19 08:53 182/66 H 10/02/19 07:30 97.6 F 70 20 160/76 H 95 10/02/19 04:00 98.4 F 74 18 177/71 H 96 Weight Admit Weight 92 lb Weight 92 lb I&O: 10/01/19 10/02/19 10/03/19 06:59 06:59 06:59 Intake Total 120 900 Balance 120 900 Result Diagrams: 09/30/19 04:57 09/30/19 04:57 Radiology Reviewed by me: Yes EKG Reviewed by me: Yes Hospitalist ROS - Medication Medications: Active Medications Generic Name Dose Route Start Last Admin Trade Name Freq PRN Reason Stop Dose Admin Aspirin 325 mg 10/01/19 09:00 10/02/19 08:53 Aspirin PO 325 mg DAILY JOHNNY Administration Atorvastatin Calcium 40 mg 09/30/19 21:00 10/01/19 21:42 Lipitor PO 40 mg HS JOHNNY Administration Carvedilol 6.25 mg 09/29/19 17:00 10/02/19 08:53 Coreg PO 6.25 mg BID-WM JOHNNY Administration Clonidine 0.1 mg 09/29/19 15:41 10/02/19 11:17 Catapres PO 0.1 mg Q4H PRN Administration SBP > 180 Glipizide 5 mg 09/30/19 07:30 10/02/19 08:53 Glucotrol PO 5 mg DAILY-AC JOHNNY Administration Insulin Human Lispro 0 units 09/29/19 15:25 09/30/19 12:14 Humalog SC 6 unit .MODERATE SLIDING SC PRN Administration Moderate Correctional Scale Losartan Potassium 25 mg 09/29/19 21:00 10/02/19 08:56 Cozaar PO 25 mg BID JOHNNY Administration - Exam General Appearance: awake alert Eye: PERRL ENT: normocephalic atraumatic Neck: supple Heart: RRR Respiratory: CTAB Gastrointestinal: soft Extremities: no cyanosis Skin: normal turgor Neurological: no new deficit Musculoskeletal: normal tone Psychiatric: normal affect, normal behavior, A&O x 3, oriented to person Hosp A/P (1) CVA (cerebral vascular accident) Code(s): I63.9 - CEREBRAL INFARCTION, UNSPECIFIED Status: Acute (2) Left frontal lobe lesion Code(s): G93.9 - DISORDER OF BRAIN, UNSPECIFIED Status: Acute (3) ICAO (internal carotid artery occlusion) Code(s): I65.29 - OCCLUSION AND STENOSIS OF UNSPECIFIED CAROTID ARTERY Status : Acute (4) HLD (hyperlipidemia) Code(s): E78.5 - HYPERLIPIDEMIA, UNSPECIFIED Status: Chronic Qualifiers: Hyperlipidemia type: unspecified Qualified Code(s): E78.5 - Hyperlipidemia , unspecified (5) HTN (hypertension) Code(s): I10 - ESSENTIAL (PRIMARY) HYPERTENSION Status: Chronic Qualifiers: Hypertension type: essential hypertension - Plan PT/OT, speech therapy 84 year old female with generalized weakness and presyncopal feeling. MRI Brain reviewed and was consistent with 2 acute lacunar infarcts in the divina. Permissive BP control. Recommend statin for secondary stroke prevention. CTA head negative for hemodynamically significant stenosis. CTA Neck showed left ICA stenosis. CV surgery on board. 2 D Echo showed LVEF 60-65%. No thrombus or PFO. PT/OT/Speech Neurochecks every 4 hours. EEG negative for seizure activity. Left frontal mass- Neurosurgery on board . Suggested MRI brain with and without contrast in 6 weeks. Continue medical management per primary team.
--- NOTE | 2019-10-02 15:59 | ULT ---
US Thyroid STANDARD: 10/02/2019 12:20 PM CLINICAL INDICATION: Enlarged thyroid mass. COMPARISON: CTA neck 09/29/2019 FINDINGS: The right thyroid lobe measures 3.4 cm and the left thyroid lobe measures 4.6cm. The entire left lobe appears oval shaped in appearance and nodular and correlates with the finding se en on CT. This measures 4.6 cm in greatest dimension.. This is associated with shadowing calcifications. No cervical lymphadenopathy is noted. IMPRESSION: Large left thyroid nodule.
[2019-10-02] MEDS: Atorvastatin Calcium 40 MG TAB PO SCH (21:04)
[2019-10-03] MEDS: Losartan 25 MG TAB PO SCH (09:33)
[2019-10-03] MEDS: Carvedilol 6.25 MG TAB PO SCH ×2 (09:33→17:13)
[2019-10-03] MEDS ORDERED: Lidocaine 1% PF 5 ML VIAL ONE (10:02)
[2019-10-03] MEDS ORDERED: Sodium Bicarbonate 2.5 MEQ/5 ML VIAL ONE (10:02)
--- NOTE | 2019-10-03 12:01 | PDOC.HOSPP ---
- Subjective Encounter Date: 10/03/19 Encounter Time: 09:10 Subjective: is amb in room, no weakness had thyroid biopsy (FNAC) this am - Objective Vital Signs & Weight: Vital Signs (12 hours) Temp Pulse Resp BP BP BP Pulse Ox 10/03/19 11:39 97.5 F L 62 20 162/68 H 100 10/03/19 09:33 150/64 H 10/03/19 07:39 97.9 F 68 16 153/69 H 96 10/03/19 03:48 97.8 F 69 20 126/58 L 97 10/03/19 00:00 97.7 F 64 18 125/64 95 Weight Admit Weight 92 lb Weight 92 lb I&O: 10/02/19 10/03/19 10/04/19 06:59 06:59 06:59 Intake Total 900 950 120 Balance 900 950 120 Result Diagrams: 09/30/19 04:57 09/30/19 04:57 Additional Labs: Accuchecks 10/03/19 10/03/19 10/02/19 06:00 00:21 20:32 POC Glucose 94 95 120 H 10/02/19 10/02/19 10/02/19 16:45 10:37 05:42 POC Glucose 80 120 H 105 10/01/19 10/01/19 10/01/19 20:50 15:59 10:48 POC Glucose 111 H 99 160 H 10/01/19 09/30/19 09/30/19 05:47 20:47 17:08 POC Glucose 147 H 167 H 77 09/30/19 09/30/19 09/29/19 16:41 05:15 21:11 POC Glucose 66 L 105 204 H Hospitalist ROS - Medication Medications: Active Medications Generic Name Dose Route Start Last Admin Trade Name Freq PRN Reason Stop Dose Admin Aspirin 325 mg 10/01/19 09:00 10/02/19 08:53 Aspirin PO 325 mg DAILY JOHNNY Administration Atorvastatin Calcium 40 mg 09/30/19 21:00 10/02/19 21:04 Lipitor PO 40 mg HS JOHNNY Administration Carvedilol 6.25 mg 09/29/19 17:00 10/03/19 09:33 Coreg PO 6.25 mg BID-WM JOHNNY Administration Clonidine 0.1 mg 09/29/19 15:41 10/02/19 11:17 Catapres PO 0.1 mg Q4H PRN Administration SBP > 180 Glipizide 5 mg 09/30/19 07:30 10/02/19 08:53 Glucotrol PO 5 mg DAILY-AC JOHNNY Administration Insulin Human Lispro 0 units 09/29/19 15:25 09/30/19 12:14 Humalog SC 6 unit .MODERATE SLIDING SC PRN Administration Moderate Correctional Scale Losartan Potassium 25 mg 09/29/19 21:00 10/03/19 09:33 Cozaar PO 25 mg BID JOHNNY Administration - Exam General Appearance: awake alert Eye: PERRL, anicteric sclera ENT: no oropharyngeal lesions, moist mucosa Neck: supple, no JVD Heart: RRR, no murmur Respiratory: no wheezes, no rales Gastrointestinal: soft, non-tender, non-distended, normal bowel sounds Extremities: no cyanosis, no edema Neurological: cranial nerve grossly intact, no focal deficits Psychiatric: normal affect, A&O x 3 Hosp A/P (1) Left frontal lobe lesion Code(s): G93.9 - DISORDER OF BRAIN, UNSPECIFIED Status: Acute (2) Syncopal episodes Code(s): R55 - SYNCOPE AND COLLAPSE Status: Acute Qualifiers: Syncope type: unspecified Qualified Code(s): R55 - Syncope and collapse (3) HLD (hyperlipidemia) Code(s): E78.5 - HYPERLIPIDEMIA, UNSPECIFIED Status: Chronic Qualifiers: Hyperlipidemia type: unspecified Qualified Code(s): E78.5 - Hyperlipidemia , unspecified (4) DM2 (diabetes mellitus, type 2) Status: Chronic Qualifiers: Diabetes mellitus moth exterminator insulin use: without shelter use Diabetes mellitus complication status: with kidney complications Diabetes mellitus complication detail: with chronic kidney disease Chronic kidney disease stage : stage 3 (moderate) Qualified Code(s): E11.22 - Type 2 diabetes mellitus with diabetic chronic kidney disease; N18.3 - Chronic kidney disease, stage 3 ( moderate) (5) HTN (hypertension) Code(s): I10 - ESSENTIAL (PRIMARY) HYPERTENSION Status: Chronic Qualifiers: Hypertension type: essential hypertension (6) Carotid artery disease Code(s): I77.9 - DISORDER OF ARTERIES AND ARTERIOLES, UNSPECIFIED Status: Chronic Qualifiers: Carotid artery disease type: stenosis Laterality: left Qualified Code(s) : I65.22 - Occlusion and stenosis of left carotid artery (7) Thyroid mass Code(s): E07.9 - DISORDER OF THYROID, UNSPECIFIED Status: Chronic - Plan nsx opinion reviewed, to have repeat MRI per their advice and f/u thyroid fnac done may dc home if ent can f/u with her as outpt continue asp, lipitor, coreg, glipizide and cozaar hemo/neurostable to amb as tolerated with PT
[2019-10-03] MEDS: Aspirin 325 MG TAB PO SCH (12:24)
--- NOTE | 2019-10-03 12:24 | PDOC.HOSPP ---
- Subjective Encounter Date: 10/03/19 Subjective: NEUROLOGY PROGRESS NOTE No acute issues overnight. - Objective Vital Signs & Weight: Vital Signs (12 hours) Temp Pulse Resp BP BP BP Pulse Ox 10/03/19 11:39 97.5 F L 62 20 162/68 H 100 10/03/19 09:33 150/64 H 10/03/19 07:39 97.9 F 68 16 153/69 H 96 10/03/19 03:48 97.8 F 69 20 126/58 L 97 Weight Admit Weight 92 lb Weight 92 lb I&O: 10/02/19 10/03/19 10/04/19 06:59 06:59 06:59 Intake Total 900 950 120 Balance 900 950 120 Result Diagrams: 09/30/19 04:57 09/30/19 04:57 Additional Labs: Accuchecks 10/03/19 10/03/19 10/03/19 12:02 06:00 00:21 POC Glucose 74 94 95 10/02/19 10/02/19 10/02/19 20:32 16:45 10:37 POC Glucose 120 H 80 120 H 10/02/19 10/01/19 10/01/19 05:42 20:50 15:59 POC Glucose 105 111 H 99 10/01/19 10/01/19 09/30/19 10:48 05:47 20:47 POC Glucose 160 H 147 H 167 H 09/30/19 09/30/19 09/30/19 17:08 16:41 05:15 POC Glucose 77 66 L 105 09/29/19 21:11 POC Glucose 204 H Radiology Reviewed by me: Yes EKG Reviewed by me: Yes Hospitalist ROS - Review of Systems ROS unobtainable: due to mental status Constitutional: denies: fever, chills, sweats, weakness, malaise, other Eyes: denies: pain, vision change, conjunctivae inflammation, eyelid inflammation, redness, other Genitourinary: denies: dysuria, frequency, incontinence, hematuria, retention, other Musculoskeletal: denies: neck pain, shoulder pain, arm pain, back pain, hand pain, leg pain, foot pain, other Skin: denies: rash, lesions, corazon, bruising, other - Medication Medications: Active Medications Generic Name Dose Route Start Last Admin Trade Name Freq PRN Reason Stop Dose Admin Aspirin 325 mg 10/01/19 09:00 10/02/19 08:53 Aspirin PO 325 mg DAILY JOHNNY Administration Atorvastatin Calcium 40 mg 09/30/19 21:00 10/02/19 21:04 Lipitor PO 40 mg HS JOHNNY Administration Carvedilol 6.25 mg 09/29/19 17:00 10/03/19 09:33 Coreg PO 6.25 mg BID-WM JOHNNY Administration Clonidine 0.1 mg 09/29/19 15:41 10/02/19 11:17 Catapres PO 0.1 mg Q4H PRN Administration SBP > 180 Glipizide 5 mg 09/30/19 07:30 10/02/19 08:53 Glucotrol PO 5 mg DAILY-AC JOHNNY Administration Insulin Human Lispro 0 units 09/29/19 15:25 09/30/19 12:14 Humalog SC 6 unit .MODERATE SLIDING SC PRN Administration Moderate Correctional Scale Losartan Potassium 25 mg 09/29/19 21:00 10/03/19 09:33 Cozaar PO 25 mg BID JOHNNY Administration - Exam General Appearance: awake alert Eye: PERRL ENT: normocephalic atraumatic Neck: supple Heart: RRR Respiratory: CTAB Gastrointestinal: soft Extremities: no cyanosis Skin: normal turgor Neurological: no focal deficits, no new deficit Musculoskeletal: no muscle wasting Psychiatric: normal affect, normal behavior, oriented to person Hosp A/P (1) CVA (cerebral vascular accident) Code(s): I63.9 - CEREBRAL INFARCTION, UNSPECIFIED Status: Acute (2) Left frontal lobe lesion Code(s): G93.9 - DISORDER OF BRAIN, UNSPECIFIED Status: Acute (3) ICAO (internal carotid artery occlusion) Code(s): I65.29 - OCCLUSION AND STENOSIS OF UNSPECIFIED CAROTID ARTERY Status : Acute (4) HLD (hyperlipidemia) Code(s): E78.5 - HYPERLIPIDEMIA, UNSPECIFIED Status: Chronic Qualifiers: Hyperlipidemia type: unspecified Qualified Code(s): E78.5 - Hyperlipidemia , unspecified (5) HTN (hypertension) Code(s): I10 - ESSENTIAL (PRIMARY) HYPERTENSION Status: Chronic Qualifiers: Hypertension type: essential hypertension Qualified Code(s): I10 - Essential (primary) hypertension - Plan PT/OT, speech therapy 84 year old female with generalized weakness and presyncopal feeling. Clinically stable. No issues overnight. Thyroid fnac today MRI Brain reviewed and was consistent with 2 acute lacunar infarcts in the divina. Aspirin and high intensity statin for secondary stroke prevention. Strict BP and BG control. CTA head negative for hemodynamically significant stenosis. CTA Neck showed left ICA stenosis. CV surgery on board. 2 D Echo showed LVEF 60-65%. No thrombus or PFO. PT/OT/Speech Neurochecks every 4 hours. EEG negative for seizure activity. Left frontal mass- Neurosurgery on board . Suggested MRI brain with and without contrast in 6 weeks. Continue medical management per primary team.
[2019-10-03] MEDS: glipiZIDE 5 MG TAB PO SCH (12:25)
--- NOTE | 2019-10-03 14:29 | CON ---
DATE OF CONSULTATION: CHIEF COMPLAINT: Neck mass and acute stroke. HISTORY OF PRESENT ILLNESS: An 84-year-old female patient presenting to the emergency room with acute onset of stroke symptoms and after extensive and thorough workup imaging demonstrated frontal lobe ischemia and lacunar infarct. Currently under treatment with generalized weakness and presyncopal feelings. Her workup currently identified a left thyroid mass and ENT was consulted due to carotid compression and significant left thyroid lobe mass. PAST MEDICAL HISTORY: Diabetes, hypertension, dyslipidemia, and left thyroid mass. CURRENT MEDICATIONS: 1. Losartan. 2. Coreg. 3. Clonidine. 4. Glipizide. 5. Multivitamins. ALLERGIES: NO KNOWN DRUG ALLERGIES. PAST SURGICAL HISTORY: Hysterectomy and cholecystectomy. FAMILY HISTORY: Of hypertension and diabetes. SOCIAL HISTORY: . No significant alcohol or tobacco use. REVIEW OF SYSTEMS: SKIN: Negative. EYES: Negative. EARS, NOSE, THROAT: See HPI. Otherwise negative. RESPIRATORY: Negative. CARDIOVASCULAR: Occasional presyncopal symptoms. GASTROINTESTINAL: Negative. MUSCULOSKELETAL: Negative. NEUROLOGIC: See HPI. HEMATOLOGIC: Negative. LYMPHATIC: Negative. IMMUNOLOGIC: Negative. ENDOCRINE: Negative. VITAL SIGNS: Currently stable. PHYSICAL EXAMINATION: GENERAL: No acute distress. Alert and oriented with slow responses in Ethiopian. HEAD AND FACE: Normocephalic, atraumatic. No facial skin lesions. No maxillary tenderness. No frontal tenderness. No parotid gland masses or lesions. No submandibular gland masses, lesions, or tenderness. EYES: Equally round and reactive to light. No nystagmus on lateral gaze. EARS: Right and left pinna are normal. EACs are clear. TMs are intact with normal landmarks. No evidence of effusion or infection. NOSE: External nose is normal. Nasal mucosa healthy. Turbinates are healthy. No masses or lesions. ORAL CAVITY: Mucous membranes are moist without lesions. Tongue and floor of mouth are without masses or lesions. Palate and uvula without lesions. NECK: No lymphadenopathy. Trachea is grossly midline. Thyroid is enlarged with a clearly palpable roughly 5 cm mass with left-sided predominance, which elevates with deglutition. NEUROLOGIC: The patient is responsive to commands. However, given overall general strength could not perform a complete neurologic exam. IMAGING: Given recent imaging, there is a significant 4.6 cm calcified left thyroid lobe mass that has mass effect on the left carotid artery. However, this image is similar in size to previous images dated in 2017. Given the almost noted the increase in size and stable appearance of this mass, it is likely that there is not a significant change in blood flow from previous years. ASSESSMENT AND PLAN: An 84-year-old female patient with acute onset of lacunar infarcts and cerebrovascular accident, presenting to the emergency room and admitted with a left thyroid mass pressing on the carotid artery causing some narrowing of the vessel. Given the size and location, would recommend an FNA as soon as the patient is cleared by her primary team for a fine-needle aspiration and pathologic diagnosis of the left thyroid mass. However, given that the mass is not significantly increased in size since 2017, it is likely that the mass effect on the vasculature has not significantly impacted cerebral blood flow. Also given recent CTA showing patency and good flow of the [place], it is unlikely that the thyroid mass is impacting current blood flow or recovery. Recommend that the patient have a fine-needle aspiration and followup in clinic. The patient was given a card with phone number to make an appointment after hospitalization and recommended given size and location even if the mass has no malignancy, would likely require a left thyroid lobectomy in order to relieve the mass effect on the trachea as well as on vasculature. However, if there is malignancy, I would recommend a total thyroidectomy with possible central neck dissection and close followup. Thank you for this consult. If you have any questions, please call . Job ID: [id number] MTDD
--- NOTE | 2019-10-03 15:34 | ULT ---
Ultrasound-guided thyroid biopsy: 10/03/2019 HISTORY: 84-year-old female with solitary large left thyroid nodule. TECHNIQUE: Signed informed consent obtained. Left anterior neck prepared and draped in usual sterile fashion. Pr ocedure performed under ultrasound guidance, using standard sterile technique. 25-gauge needle used to apply buffered lidocaine superficially and deeply. A series of 4 separate 25-gauge needles mounted on 4 separate 5 mL syringes were used to aspirate the large left thyroid nodule. The samples were given to veterinary laboratory diagnostician. Patient tolerated procedure well. No complications. IMPRESSION: Technically successful fine-needle aspiration biopsies x4 of the large dominant left thyroid nodule.
[2019-10-03 15:57] VITALS: BP 176/63; TEMP 97.9
--- NOTE | 2019-10-03 17:31 | DIS ---
DATE OF ADMISSION: 09/29/2019 DATE OF DISCHARGE: 10/03/2019 DISCHARGE DISPOSITION: Home. PRIMARY DISCHARGE DIAGNOSES: Recurrent syncope, thyroid mass, left carotid stenosis, suspected left frontal lobe mass. SECONDARY DISCHARGE DIAGNOSES: Diabetes mellitus type 2, hypertension, dyslipidemia. PROCEDURES DONE DURING HOSPITALIZATION: CT angio of brain showed hemodynamically significant stenosis involving proximal left internal carotid artery. A large heterogeneous enhancing mass with internal calcification involving the left lobe of thyroid. This mass was present on CT chest in November of 2016 and did not appear significantly changed. CT brain showed no acute intracranial process. Chest x-ray; small pleural effusion, otherwise no infiltrate. MRI brain with and without contrast done showed 2 small foci of hyperintense signal in the divina. These could either represent artifact or acute lacunar infarcts. Sequelae of a remote left frontal intra-axial hematoma. Within this region, an approximately 2 cm patchy region of intra-axial enhancement, which could represent primary brain neoplasm. Small old infarct in left pica territory. CT chest, abdomen, and pelvis with contrast done showed enlarged heterogeneous thyroid gland, right adrenal fat containing lesion compatible with adrenal adenoma, right kidney complex cyst, nonspecific mildly enlarged gastrohepatic lymph node. Echo with 2D Doppler showed ejection fraction of 60% to 65%. No mass, thrombus, vegetation, PFO, or ASD was seen. Thyroid ultrasound showed large left thyroid nodule. The patient has had a fine-needle aspiration biopsy of the left thyroid nodule done on 10/03/2019. H and H 12 and 39, platelet count 248. BUN and creatinine are 24 and 1.3. Total cholesterol 163, triglycerides 132, LDL 106, HDL 31. HbA1c is 7.6. INPATIENT CONSULTATIONS: Dr. Newell for Neurology, Dr. Wilkins for Neurosurgery, Dr. Harrison Green for ENT. DISCHARGE MEDICATIONS: 1. Multivitamin one capsule daily. 2. Aspirin 81 mg p.o. daily. 3. Lipitor 40 mg p.o. at bedtime. 4. Carvedilol 6.25 mg twice daily. 5. Clonidine 0.1 mg twice daily p.r.n. 6. Glipizide 5 mg p.o. daily. 7. Cozaar 25 mg twice daily. DISCHARGE PLAN: The patient is to follow up with Dr. Harrison Green, ENT physician, on Sunday. She needs to follow up with [facility], her primary care physician, in 1 week. BRIEF COURSE DURING HOSPITALIZATION: The patient initially got admitted on the for episodes of recurrent passing out and generalized weakness. A complete stroke workup was done. Her CT angio of the neck and brain revealed large thyroid mass and left carotid hemodynamically significant stenosis. In view of the thyroid mass, the patient has had a thyroid ultrasound and fine-needle aspiration of left thyroid nodule done this morning. She has had consultation with Dr. Harrison Green, ENT surgeon. The patient needs to follow up with him on Sunday. She has had an MRI done, which revealed sequelae of a remote left frontal intra-axial hematoma and within this area, there was a 2 cm patchy region with intra-axial enhancement. For this, she has had consultation with Dr. Wilkins, neurosurgeon. He has recommended a repeat MRI in 6 weeks to see if there is any growth. This is suspected to be laminar necrosis and unlikely to be a mass per Neurosurgery. Fine-needle aspiration biopsy results are pending at the time of discharge. She will follow up with Dr. Harrison Green on Sunday and hopefully by then she will have the results. She has otherwise remained hemodynamically stable, ambulating and eating well prior to discharge. I have given complete updates to Ms. Aguillon's family prior to discharge. Please note, I have seen and examined the patient on the day of discharge. Job ID: [id number]
--- NOTE | 2019-10-07 00:07 | PQF ---
CLINICAL DOCUMENTATION CLARIFICATION FORM: Dear : Cayetano Harvey Date / Time: 10/07/195 Please exercise your independent, professional judgment in responding to the clarification form. Clinical indicators are provided on the bottom of this form for your review Please check appropriate box(es): [ ] Protein Calorie Malnutrition: [ ] Mild [ ] Moderate [ ] Severe [ ] Other Malnutrition (please specify) __ [ ] Underweight without malnutrition [ ] Cachexia [ ] Other diagnosis [ x ] Unable to determine In addition, please specify: Present on Admission (POA): [ ] Yes [ ] No [ x] Unable to determine Physician Signature: Date/Time: For continuity of documentation, please document condition throughout progress notes and discharge summary. Thank You. To be completed by CDI/Coding staff for physician review: Present Clinical Indicators - Signs / Symptoms / Labs Results and Location in Medical Record [X] BP 181/84, Pulse 91, Resp 18, Temp 97.9 Vital signs 09/28 [X] Total Protein 7.5, Albumin 4.1, Globulin 3.4 Laboratory Chemistry 09/28 [X] BMI of 17.9 Nutritional assessment 09/29 [X] Poor appetite Nutritional assessment 09/29 [X] Weight Loss Nutritional assessment 09/29 [X] underweight Nutritional assessment 09/29 Present Risk Factors Results and Location in Medical Record [X] 84 year-old Female Nutritional assessment 09/29 [X] CKD Nutritional assessment 09/29 [X] HTN Nutritional assessment 09/29 [X] HLD Nutritional assessment 09/29 [X] Hx of CVA Nutritional assessment 09/29 [X] DM type 2 ED Notes 09/30 Present Treatments Results and Location in Medical Record [X] Dietary consult Nutritional assessment 09/29 [X] Nutritional supplements Nutritional assessment 09/29 [X] Weight monitoring Nutritional assessment 09/29 [X] Intake monitoring Nutritional assessment 09/29 [X] Appetite stimulant - medication Nutritional assessment 09/29 CDS/Load Manager Signature: Griselda Weathers Phone #: [phone] Date/Time: 10/07/195 Moderate Malnutrition (in acute illness) ? Energy Intake: <75% of estimated energy requirement for > 7 days ? Weight Loss: 1-2%/1 week; 5%/ 1 month; 7.5%/3 months ? Other: mild body fat loss; mild muscle mass loss; mild fluid accumulation; Severe Malnutrition (in acute illness) ? Energy Intake: ? 50% of estimated energy requirement for ? 5 days ? Weight Loss: >2%/1 week; >5%/1 month; >7.5%/3 months ? Other: moderate body fat loss; moderate muscle mass loss; moderate- severe fluid accumulation; measurably reduced commercial electrician strength Moderate Malnutrition (in chronic illness) ? Energy Intake: <75% of estimated energy requirement for ?1 month ? Weight Loss: 5%/1 month; 7.5%/3 months; 10%/6 months; 20%/1 year ? Other: mild body fat loss; mild muscle mass loss; mild fluid accumulation Severe Malnutrition (in chronic illness) ? Energy Intake: ?75% of estimated energy requirement for ?1 month ? Weight Loss: >5%/1 month; >7.5%/3 months; >10%/6 months; >20%/1 year ? Other: severe body fat loss; severe muscle mass loss; severe fluid accumulation; measurably reduced commercial electrician strength This is a permanent part of the Medical Record MTDD
== END 2019-10-03 17:53 | disposition home or self-care (01) | DRG 69 ==
LOC: ERS 11:03 → OBSVTOIN 15:03 → ERHOLD 15:03 → 2SE 19:26
PROVIDERS: ADMIT Internal Medicine; ATTEND Internal Medicine
PROC: 0G9G3ZX Drainage of Left Thyroid Gland Lobe, Percutaneous Approach, Diagnostic (ICD-10-PCS; principal; 2019-10-03)
DX: I67.89 Other cerebrovascular disease (principal); E87.1 Hypo-osmolality and hyponatremia; I65.22 Occlusion and stenosis of left carotid artery; E78.5 Hyperlipidemia, unspecified; E11.22 Type 2 diabetes mellitus with diabetic chronic kidney disease; N18.3 Chronic kidney disease, stage 3 (moderate); E07.89 Other specified disorders of thyroid; I10 Essential (primary) hypertension; E78.00 Pure hypercholesterolemia, unspecified; Z79.899 Other long term (current) drug therapy; Z79.84 Long term (current) use of oral hypoglycemic drugs; Z86.73 Personal history of transient ischemic attack (TIA), and cerebral infarction without residual deficits; Z90.49 Acquired absence of other specified parts of digestive tract; Z90.710 Acquired absence of both cervix and uterus
CPT/HCPCS: 36415; 36416; 60100; 70450; 70496; 70498; 70553; 71045; 71260; 74177; 76536; 76942; 80048; 80053; 80061; 81003; 81015; 82010; 82550; 83036; 84146; 84484; 85025; 85610; 85730; 87077; 87086; 87186; 88173; 88305; 93005; 93306; 94760; 95712; 95816; 95819; 95957; 96365; 96375; A9579; G0378; J0360; J0696; J3490; Q9967

== ENCOUNTER 2020-09-10 15:22 | Outpatient (CLI) | payer OTHER | END 2020-09-10 15:23 | disposition home or self-care (01) | LOC: BICRAD 15:22 | PROVIDERS: ATTEND Nurse Practitioner Family | DX: L03.115 Cellulitis of right lower limb (principal); M85.871 Other specified disorders of bone density and structure, right ankle and foot ==

== ENCOUNTER 2021-04-01 13:55 | Outpatient (CLI) | payer OTHER | END 2021-04-01 13:56 | disposition home or self-care (01) | LOC: RAD 13:55 | DX: W19.XXXA Unspecified fall, initial encounter (principal); M84.48XA Pathological fracture, other site, initial encounter for fracture; M47.9 Spondylosis, unspecified | CPT/HCPCS: 72072; 72100 ==

== ENCOUNTER 2021-05-12 09:01 | Outpatient (CLI) | payer OTHER | END 2021-05-12 09:02 | disposition home or self-care (01) | LOC: RAD 09:01 | PROVIDERS: ATTEND Family Medicine | DX: M25.571 Pain in right ankle and joints of right foot (principal) ==